=== PATIENT | male | born 1960 | race Hispanic/Latino ===

== ENCOUNTER 2019-04-07 14:53 | Inpatient (IN) | payer MEDICAID ==
[2019-04-07] MEDS ORDERED: ALUM-MAG HYDROX-SIMETH 200-200-20MG/5ML PO ONE (15:19)
[2019-04-07] MEDS ORDERED: LIDOCAINE VISCOUS 2% PO ONE (15:19)
[2019-04-07 15:28] LABS: Basophils % (Auto) 0.7 % (0.0-1.8); Eosinophils # (Auto) 0.1 K/mm3 (0.0-0.4); Eosinophils % (Auto) 2.5 % (0.0-4.3); Hematocrit 32.6 % (35.5-45.6); Hemoglobin 11.4 gm/dl (11.8-15.2); Lymphocytes % (Auto) 18.5 % (13.4-35.0); Mean Corpuscular HGB Conc 35 % (32-34); Mean Corpuscular Volume 100 fl (84-94); Monocytes # (Auto) 0.4 K/mm3 (0.0-0.8); Monocytes % (Auto) 8.4 % (0.0-7.3); Platelet Count 252 K/mm3 (140-440); Red Blood Count 3.26 M/mm3 (3.65-5.03); Red Cell Distribution Width 12.5 % (13.2-15.2)
--- NOTE | 2019-04-07 15:40 | Emergency Department Report ---
ED Chest Pain HPI - General Chief Complaint: Chest Pain Stated Complaint: CHEST PAIN Time Seen by Provider: 04/07/19 15:01 Source: EMS Mode of arrival: Stretcher Limitations: No Limitations - History of Present Illness Initial Comments: 59-year-old male presents to the emergency department with a complaint of generalized weakness, midsternal chest pain/burning and some dizziness with a questionable syncopal episode, that has been going on since yesterday. Patient says that he was helping a neighbor work on a car when he suddenly started f eeling weak and dizzy. He tried to get back into his house and thinks that he may have briefly passed out on the lawn. Since that time, he continues to feel weak and dizzy and has this midsternal burning pain. It is associated with some shortness of breath. He denies any nausea, vomiting or diaphoresis. He is a tobacco smoker and will smoke marijuana tonight. He denies any recent alcohol use. He has a past medical history that includes hypertension, seizures, anxiety, and the patient says that he had a heart attack at ages 13 and 14. His primary care physician is Dr. Fermin Caruso. He does not have a knowledge management advisor. No recent travel or sick contacts at home. Severity scale (0 -10): 6 - Related Data Previous Rx's Medication Instructions Recorded Last Taken Type HYDROcodone/APAP 5-325 [[place] 1 each PO Q6H PRN #15 tablet 09/21/15 Unknown Rx 5/325] Ibuprofen [Motrin] 800 mg PO Q8HR PRN #30 tablet 09/21/15 Unknown Rx Allergies Allergy/AdvReac Type Severity Reaction Status Date / Time ibuprofen [From Motrin] Allergy Hives Verified 04/07/19 15:08 Heart Score - HEART Score History: Slightly suspicious EKG: Non-specific Age: 45-65 Risk factors: > 3 risk factors or hx of atherosclerotic disease Troponin: < normal limit HEART Score: 4 - Critical Actions Critical Actions: 4-6 pts:12-16.6% risk of adverse cardiac event. Should be admitted ED Review of Systems ROS: Stated complaint: CHEST PAIN Other details as noted in HPI Comment: All other systems reviewed and negative Constitutional: weakness. denies: chills, fever Eyes: denies: eye pain, vision change ENT: denies: ear pain, throat pain Respiratory: shortness of breath. denies: cough Cardiovascular: chest pain, syncope. denies: palpitations Gastrointestinal: denies: abdominal pain, vomiting Genitourinary: denies: dysuria, discharge Musculoskeletal: denies: back pain, arthralgia Skin: denies: rash, lesions Neurological: weakness. denies: headache ED Past Medical Hx - Past Medical History Hx Hypertension: Yes - Social History Smoking Status: Current Every Day Smoker Substance Use Type: Alcohol, Marijuana - Medications Home Medications: Home Medications Medication Instructions Recorded Confirmed Last Taken Type HYDROcodone/APAP 5-325 [[place] 1 each PO Q6H PRN #15 tablet 09/21/15 Unknown Rx 5/325] Ibuprofen [Motrin] 800 mg PO Q8HR PRN #30 tablet 09/21/15 Unknown Rx ED Physical Exam - General Limitations: No Limitations - Other Other exam information: GENERAL: The patient is well-developed well-nourished. HENT: Normocephalic. Atraumatic. Patient has moist mucous membranes. EYES: Extraocular motions are intact. Pupils equal reactive to light bilaterally. NECK: Supple. Trachea is midline. CHEST/LUNGS: Clear to auscultation. There is no respiratory distress noted. HEART/CARDIOVASCULAR: Regular. There is no tachycardia. There is no murmur. ABDOMEN: Abdomen is soft, nontender. Patient has normal bowel sounds. There is no abdominal distention. SKIN: Skin is warm and dry. NEURO: The patient is awake, alert, and oriented. The patient is cooperative. The patient has no focal neurologic deficits. The patient has normal speech. MUSCULOSKELETAL: There is no tenderness or deformity. There is no evidence of acute injury. ED Course Vital Signs 04/07/19 04/07/19 04/07/19 14:55 15:08 15:11 Temperature 97.9 F Pulse Rate 82 Respiratory 19 18 Rate Blood Pressure 117/76 [Right] O2 Sat by Pulse 97 97 Oximetry 04/07/19 17:52 Temperature Pulse Rate 88 Respiratory 14 Rate Blood Pressure 119/78 [Right] O2 Sat by Pulse 99 Oximetry DAVID score - David Score Age > 65: (0) No Aspirin use within the Past 7 Days: (0) No 3 or more CAD Risk Factors: (1) Yes 2 or more Angina events in past 24 hrs: (1) Yes Known CAD with more than 50% Stenosis: (0) No Elevated Cardiac Markers: (0) No ST Deviation Greater than 0.5mm: (0) No DAVID Score: 2 ED Medical Decision Making - Lab Data Result diagrams: 04/07/19 15:15 04/07/19 15:15 - EKG Data -: EKG Interpreted by Me EKG shows normal: sinus rhythm, axis (left axis deviation), intervals, QRS complexes (q waves to anterior leads, LVH), ST-T waves Rate: normal - EKG Data When compared to previous EKG there are: previous EKG unavailable Interpretation: other (Sinus, LVH, LAD, Q waves to anterior leads) - Radiology Data Radiology results: image reviewed interpreted by me: Chest x-ray does not show any acute process. There are no pleural effusions, obvious pneumonia and there is no pneumothorax. - Medical Decision Making This patient presents to the emergency department with complaint of some generalized weakness, dizziness, midsternal chest pain and a questionable syn copal episode. His EKG shows some Q waves to the anterior leads but otherwise no signs of ST elevation ME. Chest x-ray does not show any acute process. Patient's labs show some hypokalemia and hyponatremia. Troponins negative 2. He has an elevated d-dimer so a VQ scan has been ordered. The patient does not have a knowledge management advisor and it has been quite some time since he had a full cardiac workup including a stress test, therefore the patient will be admitted to the hospital for further evaluation and treatment. Accepted for admission by the hospitalist, Dr Suárez. - Differential Diagnosis ME, PE, GERD, Costochondritis, Pneumonia Critical Care Time: No Critical care attestation.: If time is entered above; I have spent that time in minutes in the direct care of this critically ill patient, excluding procedure time. ED Disposition Clinical Impression: Acute chest pain, Hyponatremia, Hyperkalemia Disposition: OP ADMIT IP TO THIS HOSP Is pt being admited?: Yes Condition: Fair Instructions: Chest Pain (ED) Referrals: HASMUKH BARLOW MD [Referring] - 3-5 Days Time of Disposition: 19:20
[2019-04-07 15:41] LABS: INR 1.01 (0.87-1.13)
[2019-04-07 15:42] LABS: Partial Thromboplastin Time 28.1 Sec. (24.2-36.6)
[2019-04-07 15:49] LABS: BUN/Creatinine Ratio 7; Blood Urea Nitrogen 10 mg/dL (9-20); Calcium 9.7 mg/dL (8.4-10.2); Hemolysis Index 3
--- NOTE | 2019-04-07 16:40 | XRay Report ---
CHEST 1 VIEW INDICATION: Chest Pain. COMPARISON: None. FINDINGS: Support devices: None. Heart: Within normal limits. Lungs/Pleura: No acute air space or interstitial disease. Additional findings: None. IMPRESSION: 1. No acute findings. Signer Name: Ramy Acharya MD Signed: 04/07/2019 4:35 PM Workstation Name: [id number]
[2019-04-07] MEDS ORDERED: KIONEX PO ONE (18:12)
--- NOTE | 2019-04-07 19:00 | History and Physical Report ---
History of Present Illness Chief complaint: My chest started hurting History of present illness: 59 YO Male with HTN, Nicotine Dependence, ETOH Dependence presents to ED for evaluation. Pt states that he experienced a sudden onset of pain in his chest. Pt states that the pain began yesterday while working on a friends car. Pt states that pain was 6/10, midsternal, sharp in nature, associated with shortness of breath, dizziness, and diaphoresis. Pt states that his episode of dizziness after the onset of chest pain was followed by a near syncopal episode. Pt reports that the pain has persisted over the past 1 day. Pt also reports loss of appetite, and 20lbs unintentional weight loss over the past 1 month. Pt denies previous colonoscopy. Pt acknowledges decreased exercise tolerance, dypsnea on exertion. EMS notified and upon arrival the patient was found to be in distress and transported to [facility]. Pt seen and evaluated in ED and found to have Angina as well as symptoms consistent with Diastolic CHF, Acidosis, and Hyponatremia. Pt admitted to telemetry. Cardiology consulted in ED. Pt denies fever, chills, palpitations, trauma, BRBPR, Productive cough, skin rash, BRBPR, changes in stool size/caliber/color, unilateral leg swelling, calf pain, individual/family history of DVT/PE/Bleeding/Blood Clotting Disorders. Pt states that his last drink of ETOH was today prior to coming to the hospital. Pt sister is at bedside during exam and interview. 30 minutes additional time spent discussing care plan with patient and sister. Past History Past Medical History: hypertension Past Surgical History: No surgical history, Other (reviewed) Social history: single, smoking, alcohol abuse Family history: hypertension Medications and Allergies Allergies Allergy/AdvReac Type Severity Reaction Status Date / Time ibuprofen [From Motrin] Allergy Hives Verified 04/07/19 15:08 Home Medications Medication Instructions Recorded Confirmed Last Taken Type HYDROcodone/APAP 5-325 [[place] 1 each PO Q6H PRN #15 tablet 09/21/15 Unknown Rx 5/325] Ibuprofen [Motrin] 800 mg PO Q8HR PRN #30 tablet 09/21/15 Unknown Rx Review of Systems Constitutional: weight loss, weakness, poor appetite, no weight gain, no fever, no chills Ears, nose, mouth and throat: no ear pain, no ear discharge, no tinnitis, no decreased hearing, no nose pain Cardiovascular: chest pain, lightheadedness, shortness of breath, dyspnea on exertion, decreased exercise tolerance, no orthopnea, no palpitations, no paroxysmal nocturnal dyspnea Respiratory: no cough, no cough with sputum, no excessive sputum, no hemoptysis Gastrointestinal: no nausea, no vomiting, no diarrhea, no constipation Genitourinary Male: no hematuria, no flank pain, no discharge, no urinary frequ ency, no urinary hesitancy Rectal: no pain, no incontinence, no bleeding Musculoskeletal: no neck stiffness, no neck pain, no shooting arm pain, no arm numbness/tingling, no low back pain Integumentary: no rash, no pruritis, no redness, no sores, no wounds Neurological: no transient paralysis, no paralysis, no weakness, no parathesias, no numbness, no tingling Psychiatric: no memory loss, no change in sleep habits, no sleep disturbances, no insomnia Endocrine: no cold intolerance, no polyphagia, no excessive thirst, no polydipsia, no nocturia, no excessive sweating Hematologic/Lymphatic: no easy bruising, no easy bleeding, no lymphadenopathy, no lymphedema Allergic/Immunologic: no urticaria, no allergic rhinitis, no anaphylaxis, no angioedema Exam - Constitutional Vitals: Temp Pulse Resp BP Pulse Ox 97.9 F 88 14 119/78 99 04/07/19 14:55 04/07/19 17:52 04/07/19 17:52 04/07/19 17:52 04/07/19 17:52 General appearance: Present: mild distress - EENT Eyes: Present: PERRL ENT: hearing intact, clear oral mucosa - Neck Neck: Present: supple, normal ROM - Respiratory Respiratory effort: normal Respiratory: bilateral: CTA - Cardiovascular Heart Sounds: Present: S1 & S2. Absent: rub, click - Extremities Extremities: pulses symmetrical, No edema Peripheral Pulses: within normal limits - Abdominal General gastrointestinal: Present: soft, non-tender, non-distended, normal bowel sounds Male genitourinary: Present: normal - Integumentary Integumentary: Present: clear, warm, dry - Musculoskeletal Musculoskeletal: gait normal, strength equal bilaterally - Psychiatric Psychiatric: appropriate mood/affect, intact judgment & insight - Neurologic Neurologic: CNII-XII intact, moves all extremities Results - Labs CBC & Chem 7: 04/07/19 15:15 04/07/19 15:15 Labs: Abnormal lab results 04/07/19 04/07/19 04/07/19 Range/Units 15:15 15:15 15:15 RBC 3.26 L (3.65-5.03) M/mm3 Hgb 11.4 L (11.8-15.2) gm/dl Hct 32.6 L (35.5-45.6) % MCV 100 H (84-94) fl MCH 35 H (28-32) pg MCHC 35 H (32-34) % RDW 12.5 L (13.2-15.2) % [place] % (Auto) 8.4 H (0.0-7.3) % Lymph # 1.0 L (1.2-5.4) K/mm3 D-Dimer 436.13 H (0-234) ng/mlDDU Sodium 128 L (137-145) mmol/L Potassium 5.7 H (3.6-5.0) mmol/L Chloride 93.7 L (98-107) mmol/L Carbon Dioxide 21 L (22-30) mmol/L Assessment and Plan - Patient Problems (1) Angina at rest Current Visit: Yes Status: Acute Plan to address problem: Serial cardiac enzymes, ekg, telemetry, stress test, cardiology consulted in ED, morphine, supplemental oxygen, nitro, aspirin (2) Diastolic CHF Current Visit: Yes Status: Acute Qualifiers: Heart failure chronicity: acute Qualified Code(s): I50.31 - Acute diastolic (congestive) heart failure Plan to address problem: Admit to telemetry, echo, cardiology consulted in ED, thyroid panel, strict I/o, daily weight, monitor uop q shift, supplemental oxygen, afterload reduction, blood pressure control (3) Hyponatremia syndrome Current Visit: Yes Status: Acute Plan to address problem: IVF resuscitation therapy as tolerated, repeat bmp (4) EtOH dependence Current Visit: Yes Status: Acute Qualifiers: Complication of substance-induced condition: with unspecified complication Plan to address problem: Banana bag, Thiamine, folic acid, multivitamin, daily, CIWA protocol (5) Nicotine dependence unspecified, with withdrawal Current Visit: Yes Status: Acute Qualifiers: Nicotine product type: cigarettes Qualified Code(s): F17.213 - Nicotine dependence, cigarettes, with withdrawal Plan to address problem: Smoking cessation counseling, +15minutes, supportive care. (6) Hyperkalemia Current Visit: Yes Status: Acute Plan to address problem: No ekg changes, IVF resuscitation, repeat bmp (7) Acidosis Current Visit: Yes Status: Acute Plan to address problem: IVF resuscitation therapy, repeat bmp (8) Malnutrition Current Visit: Yes Status: Acute Qualifiers: Protein-calorie malnutrition severity: moderate Plan to address problem: CT ABdomen pelvis to evaluate for intraabdominal etiology of unintentional weight loss, encourage increased protein intake, ETOH cessation, (9) DVT prophylaxis Current Visit: Yes Status: Acute Plan to address problem: SCD to BLE while in bed
[2019-04-07] MEDS ORDERED: NITROSTAT SL PRN (19:02)
[2019-04-07] MEDS ORDERED: TYLENOL PO PRN (19:02)
[2019-04-07] MEDS ORDERED: ZOFRAN IV PRN (19:02)
[2019-04-07] MEDS ORDERED: PROVENTIL IH PRN (19:02)
[2019-04-07] MEDS ORDERED: SODIUM CHLORIDE FLUSH SYRINGE 10 ML IV PRN ×2 (19:02)
[2019-04-07] MEDS ORDERED: BABY ASPIRIN PO ONE (19:13)
--- NOTE | 2019-04-07 19:23 | Nuclear Medicine Report ---
Nuclear medicine pulmonary VQ scan INDICATION: Acute onset chest pain with dyspnea TECHNIQUE: A total of 21.8 mCi of xenon-133 and 4.4 mCi of technetium 99 DTPA was administered per pr otocol. COMPARISON: Chest radiograph performed 04/07/2019. FINDINGS: There is normal wash-in and washout of xenon radiotracer. No mismatch perfusion defect iden tified IMPRESSION: Low probability for PTE. Signer Name: Tristian Dwyer MD Signed: 04/07/2019 7:19 PM Workstation Name: [id number]
[2019-04-07] MEDS ORDERED: ATIVAN IV PRN (20:04)
[2019-04-07] MEDS ORDERED: KIONEX ONE (20:14)
[2019-04-07] MEDS ORDERED: 1: FOLVITE 1 MG, INFUVITE 10 ML, VITAMIN B-1 100 MG in NACL 0.9% 1000 ML 988.8 ML 2: NA IV SCH (21:00)
--- NOTE | 2019-04-07 21:35 | Cat Scan Report ---
CT ABDOMEN AND PELVIS WITH IV CONTRAST INDICATION: Diffuse abdominal pain COMPARISON: None available. TECHNIQUE: Axial CT images were obtained through the abdomen and pelvis after 100 mL IV contrast. All CT scans a t this location are performed using CT dose reduction for ALARA by means of automated exposure contro l. FINDINGS -- ABDOMEN: Lung Bases: No acute abnormality. Liver: Normal. Gallbladder: Normal. Bile Ducts: Normal. Pancreas: Normal. Spleen: Normal. Adrenals: Normal. Right Kidney and Proximal Ureter: Normal. Left Kidney and Proximal Ureter: Tiny nonobstructive nephrolithiasis. Stomach and Bowel: Normal. Lymph Nodes: No significant adenopathy. Aorta: Severe atherosclerotic disease of the abdominal aorta. There is some ectasia of the infrarenal abdominal aorta.. IVC: Normal. Additional Findings: None. FINDINGS -- PELVIS: Urinary Bladder and Distal Ureters: Normal. Reproductive Organs: No acute abnormality. Appendix: Not well identified. Bowel: No acute abnormality. Free Fluid: None. Lymph Nodes: No significant adenopathy. Additional Findings: None. Skeletal System: No acute abnormality. IMPRESSION: No evidence of bowel obstruction. No evidence of colitis or diverticulitis. Severe atherosclerotic di sease of the abdominal aorta with multilevel ectasia of the infrarenal abdominal aorta, likely chroni c. Signer Name: Tristian Dwyer MD Signed: 04/07/2019 9:31 PM Workstation Name: [id number]
[2019-04-07 22:04] LABS: Albumin 4.6 g/dL (3.9-5); Bilirubin,Direct 0.2 mg/dL (0-0.2)
[2019-04-07] MEDS: SODIUM CHLORIDE FLUSH SYRINGE 10 ML IV SCH (22:27)
[2019-04-08] MEDS ORDERED: LEXISCAN IV ONE ×3 (07:45→12:01)
[2019-04-08] MEDS: FOLVITE PO SCH (09:33)
[2019-04-08] MEDS: VITAMIN B-1 PO SCH (09:33)
[2019-04-08] MEDS: THERAGRAN Tab PO SCH (09:33)
[2019-04-08] MEDS: MORPHINE IV PRN ×2 (09:33→12:32)
[2019-04-08] MEDS ORDERED: CATAPRES-TTS PATCH TD SCH (10:00)
[2019-04-08 10:23] LABS: BUN/Creatinine Ratio 9; Blood Urea Nitrogen 11 mg/dL (9-20); Calcium 9.1 mg/dL (8.4-10.2); Hemolysis Index 5
--- NOTE | 2019-04-08 11:54 | Consultation ---
History of Present Illness Consult date: 04/08/19 Consult reason: chest pain History of present illness: This is a 59-year old male who has a history of seizure disorder, hypertension, hyperlipidemia, tobacco and alcohol use. Patient reports his last cardiac evaluation was 5-6 years ago. At that time he underwent a cardiac catheterization but reports no significant CAD. He was brought to this hospital with complaints of chest pain, intermittent for 2 days, associated with shortness of and dizziness. A chest x-ray is negative for acute process and a ventilation perfusion scan reports a low probability for PE. Initial labs revealed a sodium of 128 and a potassium of 5.7. Creatinine 1.5. Cycled troponins were normal. An ECG is sinus rhythm, no acute ischemic changes. Past History Past Medical History: acute MA, hypertension, hyperlipidemia, seizures Past Surgical History: No surgical history Social history: single, smoking, alcohol abuse Family history: hypertension Medications and Allergies Allergies Allergy/AdvReac Type Severity Reaction Status Date / Time ibuprofen [From Motrin] Allergy Hives Verified 04/07/19 15:08 Home Medications Medication Instructions Recorded Confirmed Last Taken Type HYDROcodone/APAP 5-325 [[place] 1 each PO Q6H PRN #15 tablet 09/21/15 Unknown Rx 5/325] Ibuprofen [Motrin] 800 mg PO Q8HR PRN #30 tablet 09/21/15 Unknown Rx Active Meds: Active Medications Acetaminophen (Tylenol) 650 mg PO Q4H PRN PRN Reason: Pain MILD(1-3)/Fever >100.5/HERNANDEZ Albuterol (Proventil) 2.5 mg IH Q4HRT PRN PRN Reason: Shortness Of Breath Clonidine HCl (Catapres-Tts Patch) 0.2 mg TD Fr APRIL Folic Acid (Folvite) 1 mg PO QDAY [facility] Last Admin: 04/08/19 09:33 Dose: 1 mg Documented by: Hydralazine HCl (Apresoline) 5 mg IV Q30MIN PRN PRN Reason: Hypertension Folic Acid 1 mg/ Multivitamins /Minerals 10 ml/ Thiamine HCl 100 mg/ Sodium Chloride 1,000 mls @ 125 mls/hr IV .BY DURATION [facility] Last Admin: 04/07/19 22:27 Dose: 125 mls/hr Documented by: Sodium Chloride (Nacl 0.9% 1000 Ml) 1,000 mls @ 125 mls/hr IV .BY DURATION [facility] Lorazepam (Ativan) 2 mg IV Q1HR PRN PRN Reason: CIWA-Ar 8-15 Morphine Sulfate (Morphine) 2 mg IV Q4H PRN PRN Reason: Pain, Moderate (4-6) Last Admin: 04/08/19 09:33 Dose: 2 mg Documented by: Multivitamins (Theragran Tab) 1 each PO QDAY [facility] Last Admin: 04/08/19 09:33 Dose: 1 each Documented by: Nitroglycerin (Nitrostat) 0.4 mg SL Q5M PRN PRN Reason: Chest Pain Ondansetron HCl (Zofran) 4 mg IV Q8H PRN PRN Reason: Nausea And Vomiting Sodium Chloride (Sodium Chloride Flush Syringe 10 Ml) 10 ml IV BID [facility] Last Admin: 04/07/19 22:27 Dose: 10 ml Documented by: Sodium Chloride (Sodium Chloride Flush Syringe 10 Ml) 10 ml IV PRN PRN PRN Reason: LINE FLUSH Sodium Chloride (Sodium Chloride Flush Syringe 10 Ml) 10 ml IV PRN PRN PRN Reason: LINE FLUSH Thiamine HCl (Vitamin B-1) 100 mg PO QDAY [facility] Last Admin: 04/08/19 09:33 Dose: 100 mg Documented by: Physical Examination Vital Signs Temp 97.9 F 04/07/19 14:55 General appearance: no acute distress HEENT: Positive: PERRL Neck: Positive: trachea midline Cardiac: Positive: Reg Rate and Rhythm Lungs: Positive: Decreased Breath Sounds Neuro: Positive: Grossly Intact Extremities: Absent: edema Results 04/07/19 15:15 04/08/19 09:31 Cardiac Enzymes 04/07/19 Range/Units 21:14 AST 53 H (5-40) units/L Coagulation 04/07/19 Range/Units 15:15 PT 13.0 (12.2-14.9) Sec. INR 1.01 (0.87-1.13) APTT 28.1 (24.2-36.6) Sec. CBC 04/07/19 Range/Units 15:15 WBC 5.3 (4.5-11.0) K/mm3 RBC 3.26 L (3.65-5.03) M/mm3 Hgb 11.4 L (11.8-15.2) gm/dl Hct 32.6 L (35.5-45.6) % Plt Count 252 (140-440) K/mm3 Lymph # 1.0 L (1.2-5.4) K/mm3 [place] # 0.4 (0.0-0.8) K/mm3 Eos # 0.1 (0.0-0.4) K/mm3 Baso # 0.0 (0.0-0.1) K/mm3 Comprehensive Metabolic Panel 04/07/19 04/07/19 04/08/19 Range/Units 15:15 21:14 09:31 Sodium 128 L 135 L D (137-145) mmol/L Potassium 5.7 H 4.7 (3.6-5.0) mmol/L Chloride 93.7 L 98.4 (98-107) mmol/L Carbon Dioxide 21 L 23 (22-30) mmol/L BUN 10 11 (9-20) mg/dL Creatinine 1.5 1.2 (0.8-1.5) mg/dL Glucose 76 95 (75-100) mg/dL Calcium 9.7 9.1 (8.4-10.2) mg/dL Direct Bilirubin 0.2 (0-0.2) mg/dL Indirect Bilirubin 0.4 mg/dL AST 53 H (5-40) units/L ALT 55 (7-56) units/L Alkaline Phosphatase 57 (35-129) units/L Total Protein 7.1 (6.3-8.2) g/dL Albumin 4.6 (3.9-5) g/dL Assessment and Plan Chest pain low probability for PE via V/Q scan Hyponatremia Hyperkalemia Hypertension Seizure disorder Tobacco/alcohol abuse
[2019-04-08] MEDS: APRESOLINE IV PRN (12:32)
[2019-04-08 14:22] LABS: Amphetamine Screen,Urine PRESUMPTIVE NEGATIVE; Benzodiazepines Screen,Urine PRESUMPTIVE NEGATIVE; Cocaine Screen,Urine PRESUMPTIVE NEGATIVE; Methadone Screen,Urine PRESUMPTIVE NEGATIVE; Opiate Screen,Urine PRESUMPTIVE NEGATIVE
[2019-04-08 14:38] LABS: Cannabinoid Screen,Urine PRESUMPTIVE POSITIVE
[2019-04-08] MEDS ORDERED: NACL 0.9% 1000 ML 1,000 ML IV SCH (15:00)
--- NOTE | 2019-04-08 15:18 | Progress Note ---
Assessment and Plan / Angina at rest ? Likely from aortic stenosis versus coronary artery disease Negative Serial cardiac enzymes, cardiology consulted in ED, Continue morphine, supplemental oxygen, nitro, aspirin 2-D echo showed preserved EF but moderate aortic stenosis Plan for cardiac cath on Thursday /Aortic stenosis, moderate Cardiology following, white for cardiac /Hypertension, uncontrolled Continue to monitor BP and adjust medications to keep systolic around 140 /Hyperlipidemia, continue statin / Hyponatremia Improved to IVF resuscitation therapy, follow bmp / EtOH dependence Placed on Banana bag, Thiamine, folic acid, multivitamin, daily, CIWA protocol / Nicotine abuse Smoking cessation counseling done on admission +15minutes, Nicotine patch as needed / Hyperkalemia No ekg changes, resolved treat IVF resuscitation, / Malnutrition, moderate History of unintentional weight loss Likely due to alcohol abuse, provided dietary recommendation / DVT prophylaxis SCD to BLE while in bed Hospitalist physical: GENERAL: White male lying on bed appeared to be in no discomfort. HEENT: Normocephalic. Atraumatic. No conjunctival congestion or icterus. Patient has moist mucous membranes. NECK: Supple. Trachea midline. CHEST/LUNGS: Clear to auscultated bilaterally, breathing nonlabored. No wheezes crackles or rhonchi. HEART/CARDIOVASCULAR: Regular in rate and rhythm. S1 and S2 positive. ABDOMEN: Abdomen is soft, nontender. Patient has normal bowel sounds. SKIN: There is no rash. Warm and dry. NEURO: No focal motor deficit. Follows command. MUSCULOSKELETAL: No joint effusion or tenderness. EXTRIMITY: No edema, no cyanosis or clubbing. PSYCH: Cooperative. Subjective Date of service: 04/08/19 Interval history: Patient seen and examined. Medical records and medication list reviewed. No acute event overnight noted by the RN. Patient denies any difficulty breathing. Patient is tolerating diet. Complaints of intermittent chest pain with exertion Discussed plan of care at bedside with patient. Objective - Constitutional Vitals: Vital Signs - 12hr 04/08/19 04/08/19 04/08/19 03:43 06:48 07:59 Temperature 97.4 F L 98.1 F Pulse Rate 69 109 H 72 Respiratory 20 18 Rate Blood Pressure 144/93 172/105 O2 Sat by Pulse 97 97 Oximetry 04/08/19 12:12 Temperature 98.6 F Pulse Rate 81 Respiratory 18 Rate Blood Pressure 179/111 O2 Sat by Pulse 99 Oximetry - Labs CBC & Chem 7: 04/07/19 15:15 04/08/19 09:31 Labs: Abnormal lab results 04/07/19 04/07/19 04/07/19 Range/Units 15:15 15:15 15:15 RBC 3.26 L (3.65-5.03) M/mm3 Hgb 11.4 L (11.8-15.2) gm/dl Hct 32.6 L (35.5-45.6) % MCV 100 H (84-94) fl MCH 35 H (28-32) pg MCHC 35 H (32-34) % RDW 12.5 L (13.2-15.2) % [place] % (Auto) 8.4 H (0.0-7.3) % Lymph # 1.0 L (1.2-5.4) K/mm3 D-Dimer 436.13 H (0-234) ng/mlDDU Sodium 128 L (137-145) mmol/L Potassium 5.7 H (3.6-5.0) mmol/L Chloride 93.7 L (98-107) mmol/L Carbon Dioxide 21 L (22-30) mmol/L AST (5-40) units/L 04/07/19 04/08/19 Range/Units 21:14 09:31 RBC (3.65-5.03) M/mm3 Hgb (11.8-15.2) gm/dl Hct (35.5-45.6) % MCV (84-94) fl MCH (28-32) pg MCHC (32-34) % RDW (13.2-15.2) % [place] % (Auto) (0.0-7.3) % Lymph # (1.2-5.4) K/mm3 D-Dimer (0-234) ng/mlDDU Sodium 135 L D (137-145) mmol/L Potassium (3.6-5.0) mmol/L Chloride (98-107) mmol/L Carbon Dioxide (22-30) mmol/L AST 53 H (5-40) units/L
[2019-04-08] MEDS ORDERED: APRESOLINE IV ONE (16:46)
[2019-04-08] MEDS ORDERED: VITAMIN B-1 100 MG, FOLVITE 1 MG, INFUVITE 10 ML in NACL 0.9% 1000 ML 1,000 ML IV ONE (22:00)
[2019-04-08] MEDS: AMBIEN PO PRN (22:13)
[2019-04-08] MEDS: NORVASC PO SCH (22:18)
[2019-04-09] MEDS: MORPHINE IV PRN ×2 (04:21→13:58)
[2019-04-09] MEDS: APRESOLINE IV PRN ×2 (04:21→09:14)
[2019-04-09] MEDS: SODIUM CHLORIDE FLUSH SYRINGE 10 ML IV SCH ×2 (09:14→21:50)
[2019-04-09] MEDS: THERAGRAN Tab PO SCH (09:16)
[2019-04-09] MEDS: FOLVITE PO SCH (09:16)
[2019-04-09] MEDS: NORVASC PO SCH (09:16)
[2019-04-09] MEDS: VITAMIN B-1 PO SCH (09:16)
--- NOTE | 2019-04-09 10:37 | Progress Note ---
Assessment and Plan 1. Aortic Stenosis: echocardiogram revealed normal left ventricular systolic function, but a calcified and stenotic aortic valve. The peak transaortic gradient is 50, and mean gradient of 28 consistent with at least moderate aortic stenosis. 2. Htn 3. Alcohol abuse Recommendations: Chest pain in the setting of at least moderate aortic stenosis. We will proceed with a right and left heart catheterization on Thursday morning. Risks and benefits have been discussed with the patient and he is willing to proceed Add Coreg [facility] protocol per primary service. Subjective Date of service: 04/09/19 Interval history: No acute events Objective Vital Signs Temp Pulse Resp BP Pulse Ox 04/09/19 09:14 68 169/103 04/09/19 08:47 98.0 F 68 16 169/103 99 04/09/19 04:21 20 04/09/19 04:10 98.1 F 80 20 170/111 99 04/08/19 23:10 98.0 F 80 18 126/91 98 04/08/19 22:19 96 04/08/19 20:34 92 H 04/08/19 19:16 98.6 F 92 H 18 130/98 98 04/08/19 19:05 98 04/08/19 16:05 98.0 F 76 18 168/108 98 04/08/19 12:12 98.6 F 81 18 179/111 99 - Physical Examination HEENT: Positive: PERRL Neck: Positive: trachea midline Cardiac: Positive: Reg Rate and Rhythm, Systolic Murmur (II/ MARGARITA RUSB) Lungs: Positive: clear to auscultation Neuro: Positive: Grossly Intact Abdomen: Positive: Soft, Active Bowel Sounds Extremities: Absent: edema
[2019-04-09] MEDS: COREG PO SCH ×2 (13:59→21:48)
--- NOTE | 2019-04-09 14:51 | Progress Note ---
Assessment and Plan / Angina at rest ? Likely from aortic stenosis versus coronary artery disease Negative Serial cardiac enzymes, cardiology consulted in ED, Continue morphine, supplemental oxygen, nitro, aspirin 2-D echo showed preserved EF but moderate aortic stenosis Plan for cardiac cath on Thursday /Aortic stenosis, moderate Cardiology following, white for cardiac /Hypertension, uncontrolled Continue to monitor BP and adjust medications to keep systolic around 140 /Hyperlipidemia, continue statin / Hyponatremia Improved to IVF resuscitation therapy, follow bmp / EtOH dependence Placed on Banana bag, Thiamine, folic acid, multivitamin, daily, CIWA protocol / Nicotine abuse Smoking cessation counseling done on admission +15minutes, Nicotine patch as needed / Hyperkalemia No ekg changes, resolved treat IVF resuscitation, / Malnutrition, moderate History of unintentional weight loss Likely due to alcohol abuse, provided dietary recommendation / DVT prophylaxis SCD to BLE while in bed Hospitalist physical: GENERAL: White male lying on bed appeared to be in no discomfort. HEENT: Normocephalic. Atraumatic. No conjunctival congestion or icterus. Patient has moist mucous membranes. NECK: Supple. Trachea midline. CHEST/LUNGS: Clear to auscultated bilaterally, breathing nonlabored. No wheezes crackles or rhonchi. HEART/CARDIOVASCULAR: Regular in rate and rhythm. S1 and S2 positive. ABDOMEN: Abdomen is soft, nontender. Patient has normal bowel sounds. SKIN: There is no rash. Warm and dry. NEURO: No focal motor deficit. Follows command. MUSCULOSKELETAL: No joint effusion or tenderness. EXTRIMITY: No edema, no cyanosis or clubbing. PSYCH: Cooperative. Subjective Date of service: 04/09/19 Interval history: Patient seen and examined. Medical records and medication list reviewed. No acute event overnight noted by the RN. Patient denies any difficulty breathing. Patient is tolerating diet. Complaints of intermittent chest pain with exertion Discussed plan of care at bedside with patient. Objective - Constitutional Vitals: Vital Signs - 12hr 04/09/19 04/09/19 04/09/19 04:10 04:21 08:47 Temperature 98.1 F 98.0 F Pulse Rate 80 68 Respiratory 20 20 16 Rate Blood Pressure 170/111 169/103 O2 Sat by Pulse 99 99 Oximetry 04/09/19 04/09/19 04/09/19 09:14 12:22 13:58 Temperature 98.0 F Pulse Rate 68 90 Respiratory 18 20 Rate Blood Pressure 169/103 140/78 O2 Sat by Pulse 99 Oximetry - Labs CBC & Chem 7: 04/07/19 15:15 04/08/19 09:31
[2019-04-09] MEDS: AMBIEN PO PRN (21:48)
[2019-04-10] MEDS: MORPHINE IV PRN ×3 (02:07→17:29)
[2019-04-10] MEDS: VITAMIN B-1 PO SCH (09:34)
[2019-04-10] MEDS: COREG PO SCH ×2 (09:34→21:36)
[2019-04-10] MEDS: FOLVITE PO SCH (09:34)
[2019-04-10] MEDS: THERAGRAN Tab PO SCH (09:34)
[2019-04-10] MEDS: NORVASC PO SCH (09:34)
[2019-04-10] MEDS: SODIUM CHLORIDE FLUSH SYRINGE 10 ML IV SCH ×3 (09:37→22:23)
--- NOTE | 2019-04-10 13:35 | Progress Note ---
Assessment and Plan / Angina at rest ? Likely from aortic stenosis versus coronary artery disease Negative Serial cardiac enzymes, cardiology consulted in ED, Continue morphine, supplemental oxygen, nitro, aspirin 2-D echo showed preserved EF but moderate aortic stenosis Plan for cardiac cath on Thursday /Aortic stenosis, moderate Cardiology following, white for cardiac /Hypertension, uncontrolled Continue to monitor BP and adjust medications to keep systolic around 140 /Hyperlipidemia, continue statin / Hyponatremia Improved to IVF resuscitation therapy, follow bmp / EtOH dependence Placed on Banana bag, Thiamine, folic acid, multivitamin, daily, CIWA protocol / Nicotine abuse Smoking cessation counseling done on admission +15minutes, Nicotine patch as needed / Hyperkalemia No ekg changes, resolved treat IVF resuscitation, / Malnutrition, moderate History of unintentional weight loss Likely due to alcohol abuse, provided dietary recommendation / DVT prophylaxis SCD to BLE while in bed Hospitalist physical: GENERAL: White male lying on bed appeared to be in no discomfort. HEENT: Normocephalic. Atraumatic. No conjunctival congestion or icterus. Patient has moist mucous membranes. NECK: Supple. Trachea midline. CHEST/LUNGS: Clear to auscultated bilaterally, breathing nonlabored. No wheezes crackles or rhonchi. HEART/CARDIOVASCULAR: Regular in rate and rhythm. S1 and S2 positive. ABDOMEN: Abdomen is soft, nontender. Patient has normal bowel sounds. SKIN: There is no rash. Warm and dry. NEURO: No focal motor deficit. Follows command. MUSCULOSKELETAL: No joint effusion or tenderness. EXTRIMITY: No edema, no cyanosis or clubbing. PSYCH: Cooperative. Subjective Date of service: 04/10/19 Interval history: Patient seen and examined. Medical records and medication list reviewed. No acute event overnight noted by the RN. Patient denies any difficulty breathing. Patient is tolerating diet. Complaints of intermittent chest pain with exertion Discussed plan of care at bedside with patient. Objective - Constitutional Vitals: Vital Signs - 12hr 04/10/19 04/10/19 04/10/19 03:39 07:43 09:34 Temperature 98.4 F 97.9 F Pulse Rate 69 63 93 H Respiratory 19 18 Rate Blood Pressure 147/97 142/101 144/95 O2 Sat by Pulse 98 99 Oximetry 04/10/19 11:46 Temperature 98.8 F Pulse Rate 73 Respiratory 18 Rate Blood Pressure 153/106 O2 Sat by Pulse 99 Oximetry - Labs CBC & Chem 7: 07/11/19 15:15 04/11/19 04:18
--- NOTE | 2019-04-10 13:55 | Progress Note ---
Assessment and Plan 1. Aortic Stenosis: echocardiogram revealed normal left ventricular systolic function, but a calcified and stenotic aortic valve. The peak transaortic gradient is 50, and mean gradient of 28 consistent with at least moderate aortic stenosis. 2. Htn 3. Alcohol abuse Recommendations: Chest pain in the setting of at least moderate aortic stenosis. We will proceed with a right and left heart catheterization on Thursday morning. Risks and benefits have been discussed with the patient and he is willing to proceed Coreg added yesterday - continue to monitor BP and titrate as needed CIWA protocol per primary service. Subjective Date of service: 04/10/19 Interval history: No cardiac complaints. Cardiac cath further discussed with patient. Objective Vital Signs Temp Pulse Resp BP Pulse Ox 04/10/19 11:46 98.8 F 73 18 153/106 99 04/10/19 09:34 93 H 144/95 04/10/19 07:43 97.9 F 63 18 142/101 99 04/10/19 03:39 98.4 F 69 19 147/97 98 04/09/19 23:26 97.9 F 65 19 132/97 98 04/09/19 20:55 75 04/09/19 19:21 98.4 F 75 20 138/96 99 04/09/19 17:09 98.0 F 79 18 111/80 100 04/09/19 13:58 20 - Physical Examination HEENT: Positive: PERRL Neck: Positive: trachea midline Cardiac: Positive: Reg Rate and Rhythm, Systolic Murmur (II/ MARGARITA RUSB) Lungs: Positive: clear to auscultation Neuro: Positive: Grossly Intact Abdomen: Positive: Soft, Active Bowel Sounds Extremities: Absent: edema
[2019-04-10] MEDS: LOVENOX SUB-Q SCH (21:36)
[2019-04-11] MEDS: MORPHINE IV PRN ×3 (02:54→21:26)
[2019-04-11 06:05] LABS: INR 1.11 (0.87-1.13)
[2019-04-11 06:19] LABS: BUN/Creatinine Ratio 10; Blood Urea Nitrogen 8 mg/dL (9-20); Hemolysis Index 11
[2019-04-11] MEDS ORDERED: HEPARIN 10,000 UNITS/10 ML ONE (08:49)
[2019-04-11] MEDS ORDERED: HEPARIN/NS 5000 UNIT/500ML(CATH LAB) 1,000 ML IR ONE (08:49)
[2019-04-11] MEDS ORDERED: CALAN ONE (08:49)
[2019-04-11] MEDS ORDERED: NITROGLYCERIN SYRINGE 0 ML ONE (08:50)
[2019-04-11] MEDS ORDERED: NACL 0.9% 500 ML 500 ML ONE (09:10)
[2019-04-11] MEDS: VERSED ONE ×2 (09:20→09:24)
[2019-04-11] MEDS: SUBLIMAZE ONE ×2 (09:20→09:24)
[2019-04-11] MEDS: XYLOCAINE 2% INFILTRATI ONE ×2 (09:20→09:28)
--- NOTE | 2019-04-11 10:42 | Event Note ---
Date: 04/11/19 Right and left heart catheterization completed, no complications. Findings: Moderate to severe aortic stenosis, with mean gradient of 42 and aortic valve area of 1.1. Ascending aortic aneurysm, with at least mild to moderate aortic regurgitation. Angiographically normal coronary arteries. Normal left ventricular systolic function, ejection fraction 60%. Recommendations: A noncontrast CT of the chest, for measurement of the ascending aorta. The patient is stable for cardiac discharge after chest CT, we will refer for CT surgery evaluation as outpatient.
[2019-04-11] MEDS: SODIUM CHLORIDE FLUSH SYRINGE 10 ML IV SCH ×2 (11:00→21:27)
[2019-04-11] MEDS: NORVASC PO SCH (11:00)
[2019-04-11] MEDS: FOLVITE PO SCH (11:00)
[2019-04-11] MEDS: COREG PO SCH ×2 (11:00→21:25)
[2019-04-11] MEDS: THERAGRAN Tab PO SCH (11:00)
[2019-04-11] MEDS ORDERED: NACL 0.9% 1000 ML 1,000 ML IV SCH (11:00)
[2019-04-11] MEDS: VITAMIN B-1 PO SCH (11:00)
--- NOTE | 2019-04-11 11:34 | Cardiac Catherization Report ---
REASON FOR PROCEDURE: The patient is a 59-year-old man who presented with chest pain and further evaluation with an echocardiogram revealed a calcified stenotic aortic valve. He was recommended for right and left heart catheterization for further assessment of valvular stenosis. PROCEDURE: 1. Right heart catheterization. 2. Left heart catheterization. 3. Selective left and right coronary angiography. 4. Left ventricle angiography. 5. Ascending aortic angiography. 6. Sedation time, start 0924 hours, end 0958 hours. The patient was prepped and draped in a sterile fashion after informed consent. The right femoral artery and vein were both entered using Seldinger technique. A 6-Kinyarwanda sheath was inserted into the artery and an 8-Kinyarwanda sheath into the vein. A [place]-Doug catheter was then advanced to the pulmonary artery position. A dual lumen pigtail catheter was advanced into the left ventricle. Transaortic pressures were then recorded using the dual lumen catheter. Following this, simultaneous right and left heart filling pressures were recorded. This cardiac output was measured using the thermodilution method. The [place]-Doug catheter was then withdrawn and right heart pressures were recorded on pullback. Left ventricular angiography was then performed using a pigtail catheter. Pigtail catheter was also used for ascending aortic angiography. Finally, selective left and right coronary angiography was performed. A #5 left Elpidio catheter was used for left coronary angiography, and a #4 right Elpidio was used for right coronary angiography. The catheters were then withdrawn, sheath removed, hemostasis over the arterial site using an Angio-Seal device, and over the venous site using manual compression. The patient was returned to the postprocedure unit in stable condition. There were no complications. FINDINGS: HEMODYNAMICS: The mean right atrial pressure was 8. Right ventricular pressure was 32/10. Pulmonary artery pressure was 35/15. The mean pulmonary artery wedge pressure was 12-15. Left ventricular end-diastolic pressure was 15. Cardiac output was 5.88 liters per minute. AORTIC STENOSIS: The left ventricular systolic pressure was 180. Ascending aortic pressure was 160. Simultaneous transaortic mean gradient was 37 mmHg. Using the Gorlin equation, the aortic valve area was calculated at 1.1 square cm. ASCENDING AORTIC ANGIOGRAPHY: Ascending aortic angiography revealed an aneurysm of the ascending aorta, as well as 2+ aortic regurgitation. CORONARY ANGIOGRAPHY: The left main, left anterior descending arteries and its diagonal branches were angiographically normal. A large ramus intermedius artery was similarly angiographically normal. The circumflex artery and its obtuse marginal branches were similarly angiographically normal. The right coronary artery was a large dominant vessel that contained mild calcification of its mid segment, associated with mild luminal irregularities, but otherwise free of significant disease. There was normal left ventricular systolic function with ejection fraction 60%. CONCLUSION: 1. Normal right heart, left heart filling pressures, very mild elevation of pulmonary artery pressures. 2. At least moderate to severe aortic stenosis, with mean transaortic gradient of 37 mmHg and aortic valve area of 1.1. 3. Ascending aortic angiography, a CT scan of the aorta pending for optimal measurement of maximal transaortic diameter. 4. Moderate aortic regurgitation. 5. Essentially angiographically normal coronary arteries, no significant coronary stenosis. 6. Well preserved left ventricular systolic function, ejection fraction 60%. RECOMMENDATION: 1. The patient will undergo CT of the chest for optimal sizing of the ascending aortic aneurysm. 2. Following this, he will be recommended for CT surgery evaluation for aortic valve replacement, with possible concomitant ascending aortic aneurysm repair. JOB# [id number] ANA/DALILA
--- NOTE | 2019-04-11 14:29 | Discharge Summary ---
Providers - Providers Date of Admission: 04/07/19 19:02 Attending physician: KAYLI BARTLETT 04/07/19 Consult to Cardiac Rehabilitation [CONS] Routine Reason For Exam: Phase I 04/07/19 19:02 Consult to Cardiology [CONS] Routine Consulting Provider: FLO BRIGGS Reason For Exam: angina/chf 04/11/19 10:34 Consult to Cardiac Rehabilitation [CONS] Routine Reason For Exam: Cardiac Rehab Evaluation Primary care physician: SONIA SELF Hospitalization Condition: Fair Pertinent studies: Abdomen and pelvis CT Chest x-ray 2-D echocardiogram Right and left heart catheterization CT chest VQ scan Hospital course: This is the progress note for 04/11/19 Patient seen and examined s/p cardiac cath today, waiting for CT chest This is a 59-year old male who has a history of seizure disorder, hypertension, hyperlipidemia, tobacco and alcohol use was brought to this hospital with complaints of chest pain, intermittent for 2 days, associated with shortness of and dizziness. A chest x-ray is negative for acute process and a ventilation perfusion scan reports a low probability for PE. Initial labs revealed a sodium of 128 and a potassium of 5.7. Creatinine 1.5. Cycled troponins were normal. An ECG is sinus rhythm, no acute ischemic changes. he was admitted for further evaluation and management. Assessment and plan: / Angina at rest Likely from moderate to severe aortic stenosis Negative Serial cardiac enzymes, cardiology consulted in ED, placed on morphine, supplemental oxygen, nitro, aspirin 2-D echo showed preserved EF but moderate aortic stenosis Cardiac cath showed normal coronaries, need outpt CT surgery f/u /Aortic stenosis, Moderate to severe Right and left heart catheterization completed today, no complications. Findings: Moderate to severe aortic stenosis, with mean gradient of 42 and aortic valve area of 1.1. Ascending aortic aneurysm, with at least mild to moderate aortic regurgitation. Angiographically normal coronary arteries. Normal left ventricular systolic function, ejection fraction 60%. Ordered a noncontrast CT of the chest, for measurement of the ascending aorta. The patient was cleared for cardiac discharge after chest CT, refer for CT surgery evaluation as outpatient. /Hypertension, uncontrolled Continue to monitor BP and adjust medications to keep systolic around 140 /Hyperlipidemia, continue statin / Hyponatremia Improved to IVF resuscitation therapy, follow bmp / EtOH dependence Placed on Banana bag, Thiamine, folic acid, multivitamin, daily, CIWA protocol / Nicotine abuse Smoking cessation counseling done on admission +15minutes, Nicotine patch as needed / Hyperkalemia, likely from ACEI No ekg changes, resolved with IVF resuscitation, hold ACEI / Malnutrition, moderate History of unintentional weight loss Likely due to alcohol abuse, provided dietary recommendation /Kadeem, likley from medication, POA. resolved - hold ACEI for now, / DVT prophylaxis SCD to BLE while in bed Hospitalist physical: GENERAL: White male lying on bed appeared to be in no discomfort. HEENT: Normocephalic. Atraumatic. No conjunctival congestion or icterus. Patient has moist mucous membranes. NECK: Supple. Trachea midline. CHEST/LUNGS: Clear to auscultated bilaterally, breathing nonlabored. No wheezes crackles or rhonchi. HEART/CARDIOVASCULAR: Regular in rate and rhythm. S1 and S2 positive. ABDOMEN: Abdomen is soft, nontender. Patient has normal bowel sounds. SKIN: There is no rash. Warm and dry. NEURO: No focal motor deficit. Follows command. MUSCULOSKELETAL: No joint effusion or tenderness. EXTRIMITY: No edema, no cyanosis or clubbing. PSYCH: Cooperative. [id number] Time spent for discharge: 34 minutes Core Measure Documentation - Palliative Care Palliative Care/ Comfort Measures: Not Applicable - Core Measures Any of the following diagnoses?: none Exam - Constitutional Vitals: Temp Pulse Resp BP Pulse Ox 97.4 F L 74 15 180/100 100 04/11/19 12:03 04/11/19 14:00 04/11/19 14:00 04/11/19 14:00 04/11/19 14:00 Plan Additional Instructions: f/u with Dr Briggs in one week Follow up with: JUANA [facility] MD ADINA [Referring] - 3-5 Days Prescriptions: Carvedilol [Coreg] 6.25 mg PO BID #60 tablet Thiamine [Vitamin B-1] 100 mg PO QDAY #30 tablet
[2019-04-11] MEDS: LOVENOX SUB-Q SCH (21:26)
[2019-04-12] MEDS: MORPHINE IV PRN ×3 (06:11→13:57)
--- NOTE | 2019-04-12 09:14 | Cat Scan Report ---
CT CHEST WITH CONTRAST INDICATION / CLINICAL INFORMATION: Ascending aortic aneurysm. TECHNIQUE: Axial CT images were obtained through the chest after 100 cc IV contrast. Sagittal and coronal reform atted images. All CT scans at this location are performed using CT dose reduction for ALARA by means of automated exposure control. COMPARISON: None available. FINDINGS: HEART: Heart size is normal. Aortic valve replacement is noted. There is trace pericardial fluid. THORACIC AORTA: The ascending thoracic aorta measures a maximum of 5.0 cm in diameter. The descending thoracic aorta measures 3.2 cm at the same level. The aortic arch measures 3.2 cm. There are mild sc attered calcific plaques in the aorta. No dissection. MEDIASTINUM and RON: No significant abnormality. LUNGS: Mild to moderate centrilobular emphysematous changes are identified in both upper lobes. No ev idence for nodule, mass or infiltrate. Minimal subpleural atelectatic changes are noted in both lower lobes. PLEURA: No significant pleural effusion. No pneumothorax. ADDITIONAL FINDINGS: None. UPPER ABDOMEN: No significant abnormality. SKELETAL SYSTEM: Healing right posterolateral ninth rib fracture is noted. IMPRESSION: The ascending thoracic aorta measures 5.0 cm in maximum. Mild to moderate emphysematous changes in the upper lobes. Healing right posterolateral ninth rib fracture. Signer Name: Orville Seals Jr, MD Signed: 04/12/2019 9:10 AM Workstation Name: [id number]
--- NOTE | 2019-04-12 09:51 | Progress Note ---
Assessment and Plan Chest pain low probability for PE via V/Q scan Right and left heart catheterization findings: Moderate to severe aortic stenosis, with mean gradient of 42 and aortic valve area of 1.1. Ascending aortic aneurysm, with at least mild to moderate aortic regurgitation. Angiographically normal coronary arteries. Normal left ventricular systolic function, ejection fraction 60%. A noncontrast CT of the chest measures the ascending thoracic aorta at 5.0 cm. Hyponatremia Hypertension Seizure disorder Tobacco/alcohol abuse The patient is stable for cardiac discharge. We will refer for CT surgery evaluation as outpatient. Patient advised to follow up with [facility] as scheduled April 19. Subjective Date of service: 04/12/19 Interval history: Patient has no complaints. He denies chest pain, shortness of breath and has no back pain. No hematoma noted of cath site. Objective Vital Signs Temp Pulse Resp BP BP Pulse Ox 04/12/19 09:27 99 04/12/19 06:11 20 04/12/19 03:38 98.5 F 73 20 135/96 98 04/11/19 23:02 98.5 F 63 20 133/92 98 04/11/19 21:26 20 04/11/19 21:25 78 168/109 04/11/19 20:00 96 04/11/19 19:29 97.6 F 78 19 168/109 99 04/11/19 15:04 69 15 153/98 98 04/11/19 14:00 74 15 180/100 100 04/11/19 12:30 71 16 137/90 95 04/11/19 12:10 98 04/11/19 12:03 97.4 F L 76 17 144/99 99 04/11/19 11:30 98 F 70 14 143/100 97 04/11/19 11:15 97.3 F L 73 16 160/103 98 04/11/19 11:00 98 F 82 15 158/106 158/106 99 04/11/19 10:55 71 160/110 100 04/11/19 10:45 78 14 160/110 99 04/11/19 10:00 67 - Physical Examination General: No Apparent Distress HEENT: Positive: PERRL Neck: Positive: trachea midline Cardiac: Positive: Reg Rate and Rhythm Lungs: Positive: Decreased Breath Sounds Neuro: Positive: Grossly Intact Abdomen: Positive: Soft, Active Bowel Sounds Extremities: Absent: edema
[2019-04-12] MEDS: VITAMIN B-1 PO SCH (10:12)
[2019-04-12] MEDS: COREG PO SCH (10:12)
[2019-04-12] MEDS: THERAGRAN Tab PO SCH (10:12)
[2019-04-12] MEDS: NORVASC PO SCH (10:12)
[2019-04-12] MEDS: FOLVITE PO SCH (10:13)
[2019-04-12] MEDS: SODIUM CHLORIDE FLUSH SYRINGE 10 ML IV SCH (10:13)
[2019-04-12 17:01] VITALS: BP 121/93
--- NOTE | 2019-04-12 17:11 | Discharge Summary ---
Providers - Providers Date of Admission: 04/07/19 19:02 Date of discharge: 04/12/19 Attending physician: HEATHER PUENTES 04/07/19 Consult to Cardiac Rehabilitation [CONS] Routine Reason For Exam: Phase I 04/07/19 19:02 Consult to Cardiology [CONS] Routine Consulting Provider: FLO BRIGGS Reason For Exam: angina/chf 04/11/19 10:34 Consult to Cardiac Rehabilitation [CONS] Routine Reason For Exam: Cardiac Rehab Evaluation Primary care physician: SONIA SELF Hospitalization Reason for admission: chest pain Condition: Fair Pertinent studies: Chest x-ray CT abdomen and pelvis Echocardiogram Cardiac catheterization CT chest Hospital course: This is a 59-year old male who has a history of seizure disorder, hypertension, hyperlipidemia, tobacco and alcohol use was brought to this hospital with complaints of chest pain, intermittent for 2 days, associated with shortness of and dizziness. A chest x-ray is negative for acute process and a ventilation perfusion scan reports a low probability for PE. Initial labs revealed a sodium of 128 and a potassium of 5.7. Creatinine 1.5. Cycled troponins were normal. An ECG is sinus rhythm, no acute ischemic changes. Patient was admitted and evaluated by cardiology , underwent cardiac catheterization. Cardiac catheterization; moderate to severe aortic stenosis with mean gradient 42 and aortic valve area 1.1, ascending aortic aneurysm with at least mild to moderate diabetic regurgitation, nonobstructive coronaries, LVEF 60%. The patient also had noncontrast CT chest; ascending thoracic aorta 5 cm at its widest diameter Stevedoring Superintendent recommend urgent CT surgical evaluation, patient is being transferred to [facility] for aortic valve replacement and repair of the descending aortic aneurysm Discharge Diagnosis: --Angina at rest Likely from moderate to severe aortic stenosis Negative Serial cardiac enzymes,Heart cath, non obst coronaries --Aortic stenosis, Moderate to severe Transfer patient Cardiothoracic surgery [facility] today --Hypertension,mod controlled Continue to monitor BP and adjust medications to keep systolic around 140 --Hyperlipidemia, continue statin --Hyponatremia : improved ,follow bmp --EtOH dependence Placed on Banana bag, Thiamine, folic acid, multivitamin, daily, CIWA protocol --Nicotine abuse Smoking cessation counseling done on admission +15minutes, Nicotine patch as needed --Hyperkalemia, likely from ACEI No ekg changes, resolved with IVF resuscitation, hold ACEI --Malnutrition, moderate History of unintentional weight loss Likely due to alcohol abuse, provided dietary recommendation --Kadeem, likley from medication, POA. resolved hold ACEI for now, Transferred to Cardiothoracic surgeon [facility]. Disposition: DC/TX-02 SHRT-TRM GEN HOSP IP Time spent for discharge: 32 min Core Measure Documentation - Palliative Care Palliative Care/ Comfort Measures: Not Applicable - Core Measures Any of the following diagnoses?: none Exam - Constitutional Vitals: Temp Pulse Resp BP Pulse Ox 98.2 F 71 18 121/93 100 04/12/19 12:05 04/12/19 17:00 04/12/19 12:05 04/12/19 17:00 04/12/19 17:00 General appearance: Present: no acute distress, well-nourished, other (anxious) - EENT Eyes: Present: PERRL, EOM intact - Neck Neck: Present: supple, normal ROM - Respiratory Respiratory effort: normal Respiratory: bilateral: diminished, negative: rales, rhonchi, wheezing - Cardiovascular Rhythm: regular Heart Sounds: Present: S1 & S2 - Extremities Extremities: no ischemia, No edema - Abdominal General gastrointestinal: Present: soft, non-tender, non-distended, normal bowel sounds - Integumentary Integumentary: Present: clear, warm - Musculoskeletal Musculoskeletal: strength equal bilaterally - Psychiatric Psychiatric: appropriate mood/affect, cooperative - Neurologic Neurologic: moves all extremities Plan Activity: other (bedrest) Additional Instructions: Patient is being transferred to [facility] for urgent cardiothoracic surgical evaluation and possible aortic valve replacement and ascending aortic aneurysm repair Follow up with: HASMUKH BARLOW MD [Referring] - 3-5 Days Prescriptions: Carvedilol [Coreg] 6.25 mg PO BID #60 tablet Thiamine [Vitamin B-1] 100 mg PO QDAY #30 tablet
[2019-04-12] MEDS ORDERED: XANAX PO ONE (18:00)
== END 2019-04-12 17:34 | disposition short-term general hospital (02) | DRG 286 ==
LOC: ED 14:53 → 4A 19:02
PROVIDERS: ADMIT Internal Medicine; ATTEND Internal Medicine
PROC: 4A023N8 Measurement of Cardiac Sampling and Pressure, Bilateral, Percutaneous Approach (ICD-10-PCS; principal; 2019-04-11)
PROC: B2111ZZ Fluoroscopy of Multiple Coronary Arteries using Low Osmolar Contrast (ICD-10-PCS; 2019-04-11)
PROC: B2151ZZ Fluoroscopy of Left Heart using Low Osmolar Contrast (ICD-10-PCS; 2019-04-11)
PROC: B3101ZZ Fluoroscopy of Thoracic Aorta using Low Osmolar Contrast (ICD-10-PCS; 2019-04-11)
DX: I35.0 Nonrheumatic aortic (valve) stenosis (principal); I50.31 Acute diastolic (congestive) heart failure; I11.0 Hypertensive heart disease with heart failure; E87.2 Acidosis; E87.1 Hypo-osmolality and hyponatremia; E44.0 Moderate protein-calorie malnutrition; I20.8 Other forms of angina pectoris; E87.5 Hyperkalemia; G40.909 Epilepsy, unspecified, not intractable, without status epilepticus; E78.5 Hyperlipidemia, unspecified; F10.20 Alcohol dependence, uncomplicated; N17.9 Acute kidney failure, unspecified; I71.2 Thoracic aortic aneurysm, without rupture; F17.213 Nicotine dependence, cigarettes, with withdrawal; Z71.6 Tobacco abuse counseling; Z68.21 Body mass index [BMI] 21.0-21.9, adult; Z82.49 Family history of ischemic heart disease and other diseases of the circulatory system
CPT/HCPCS: 36415; 71045; 71260; 74177; 78582; 80048; 80076; 80307; 83880; 84484; 85025; 85379; 85610; 85730; 93005; 93010; 93306; 93460; 93567; G0378; A9540; A9558; C1751; C1760; C1769; C1894; J0360; J1644; J1650; J2060; J2250; J2270; J2785; J3010; J3411; J7030; J7040; Q9967

== ENCOUNTER 2019-06-12 16:58 | Inpatient (IN) | payer MEDICAID ==
--- NOTE | 2019-06-12 17:04 | Emergency Department Report ---
- General Stated complaint: JEANNE Time Seen by Provider: 06/12/19 17:00 Source: patient, EMS Mode of arrival: Stretcher Limitations: No Limitations - History of Present Illness Initial comments: Patient is a 59-year-old male that presents emergency room with complaints of dizziness and weakness and shortness of breath and cough.. Patient states his symptoms been going on for 3 days. Patient states his symptoms are better with rest and wants EMS gave him oxygen. Patient states his symptoms are worse with exertion. Patient states his weakness is generalized weakness. Patient states his cough is productive with yellow sputum. Patient denies fever and chills. Patient denies chest pain. Patient denies nausea vomiting. EMS report received. EMS states the patient was 85% O2 saturation on seen. Patient was given oxygen and his oxygen improved. MD Complaint: generalized weakness -: Sudden Location: generalized Severity: severe Consistency: constant Improves with: rest, other Worsens with: exertion Associated Symptoms: shortness of breath. denies: chest pain, confusion, dark stools, diaphoresis, dysuria, easy bruising, fever/chills, headaches, loss of appetite, nausea/vomiting, myalgias, rash, syncope - Related Data Home Medications Medication Instructions Recorded Confirmed Last Taken Cyclobenzaprine 10 QHS 04/10/19 04/05/19 Nifedipine ER 90 DAILY 04/10/19 04/05/19 Pravastatin 40 QHS 04/10/19 04/05/19 levETIRAcetam 1,000 BID 04/10/19 04/05/19 traZODone 100 QHS 04/10/19 04/05/19 Previous Rx's Medication Instructions Recorded Last Taken Type Carvedilol [Coreg] 6.25 mg PO BID #60 tablet 04/11/19 Unknown Rx Thiamine [Vitamin B-1] 100 mg PO QDAY #30 tablet 04/11/19 Unknown Rx ALBUTEROL NEB's [Proventil 0.083% 2.5 mg IH Q4HRT PRN nebu 04/12/19 Unknown Rx NEBS] Folic Acid [Folvite] 1 mg PO QDAY tablet 04/12/19 Unknown Rx LORazepam [Ativan INJ] 2 mg IV Q1HR PRN vial 04/12/19 Unknown Rx Nitroglycerin [Nitrostat] 0.4 mg SL Q5M PRN tablet 04/12/19 Unknown Rx amLODIPine [Norvasc] 10 mg PO QDAY tablet 04/12/19 Unknown Rx cloNIDine-TTS PATCH [Catapres-Tts 0.2 mg TD Fr patch 04/12/19 Unknown Rx 0.2mg Patch] hydrALAZINE [Apresoline INJ] 5 mg IV Q30MIN PRN vial 04/12/19 Unknown Rx Allergies Allergy/AdvReac Type Severity Reaction Status Date / Time ibuprofen [From Motrin] Allergy Hives Verified 04/07/19 15:08 ED Review of Systems ROS: Stated complaint: JEANNE Other details as noted in HPI Constitutional: denies: chills, fever Eyes: denies: eye pain, eye discharge, vision change ENT: denies: ear pain, throat pain Respiratory: cough, shortness of breath, SOB with exertion, SOB at rest. denies: wheezing Cardiovascular: denies: chest pain, palpitations Endocrine: no symptoms reported Gastrointestinal: denies: abdominal pain, nausea, diarrhea Genitourinary: denies: urgency, dysuria Musculoskeletal: denies: back pain, joint swelling, arthralgia Skin: denies: rash, lesions Neurological: weakness. denies: headache, paresthesias Psychiatric: denies: anxiety, depression Hematological/Lymphatic: denies: easy bleeding, easy bruising ED Past Medical Hx - Past Medical History Previous Medical History?: Yes Hx Hypertension: Yes Hx Seizures: Yes Additional medical history: High Cholesterol - Surgical History Past Surgical History?: Yes Hx Open Heart Surgery: Yes (aortic aneurysm repair) - Family History Family history: no significant - Social History Smoking Status: Former Smoker Substance Use Type: None - Medications Home Medications: Home Medications Medication Instructions Recorded Confirmed Last Taken Type Cyclobenzaprine 10 QHS 04/10/19 04/05/19 History Nifedipine ER 90 DAILY 04/10/19 04/05/19 History Pravastatin 40 QHS 04/10/19 04/05/19 History levETIRAcetam 1,000 BID 04/10/19 04/05/19 History traZODone 100 QHS 04/10/19 04/05/19 History Carvedilol [Coreg] 6.25 mg PO BID #60 tablet 04/11/19 Unknown Rx Thiamine [Vitamin B-1] 100 mg PO QDAY #30 tablet 04/11/19 Unknown Rx ALBUTEROL NEB's [Proventil 0.083% 2.5 mg IH Q4HRT PRN nebu 04/12/19 Unknown Rx NEBS] Folic Acid [Folvite] 1 mg PO QDAY tablet 04/12/19 Unknown Rx LORazepam [Ativan INJ] 2 mg IV Q1HR PRN vial 04/12/19 Unknown Rx Nitroglycerin [Nitrostat] 0.4 mg SL Q5M PRN tablet 04/12/19 Unknown Rx amLODIPine [Norvasc] 10 mg PO QDAY tablet 04/12/19 Unknown Rx cloNIDine-TTS PATCH [Catapres-Tts 0.2 mg TD Fr patch 04/12/19 Unknown Rx 0.2mg Patch] hydrALAZINE [Apresoline INJ] 5 mg IV Q30MIN PRN vial 04/12/19 Unknown Rx ED Physical Exam - General Limitations: No Limitations General appearance: alert, in no apparent distress - Head Head exam: Present: atraumatic, normocephalic - Eye Eye exam: Present: normal appearance, PERRL Pupils: Present: normal accommodation - ENT ENT exam: Present: mucous membranes moist - Neck Neck exam: Present: normal inspection - Respiratory Respiratory exam: Present: normal lung sounds bilaterally, decreased breath jonathan nds. Absent: respiratory distress, wheezes, rales, chest wall tenderness, accessory muscle use, prolonged expiratory - Cardiovascular Cardiovascular Exam: Present: regular rate, normal rhythm. Absent: systolic murmur, diastolic murmur, rubs, gallop - GI/Abdominal GI/Abdominal exam: Present: soft, normal bowel sounds - Rectal Rectal exam: Present: deferred - Extremities Exam Extremities exam: Present: normal inspection - Back Exam Back exam: Present: normal inspection - Neurological Exam Neurological exam: Present: alert, oriented X3 - Psychiatric Psychiatric exam: Present: normal affect, normal mood - Skin Skin exam: Present: warm, dry, intact, normal color. Absent: rash - Assessment Assessment Interval: Baseline - Level of Consciousness 1a. Level of Consciousness: alert/keenly responsive - LOC Questions 1b. LOC Questions: answers both correctly - LOC Command 1c. LOC Commands: performs tasks correctly - Best Gaze 2. Best Gaze: normal - Visual 3. Visual: no visual loss - Facial Palsy 4. Facial Palsy: normal symmetrical movement - Motor Arm 5a. Motor Arm Left: no drift 5b. Motor Arm Right: no drift - Motor Leg 6a. Motor Leg Left: no drift 6b. Motor Leg Right: no drift - Limb Ataxia 7. Limb Ataxia: absent - Sensory 8. Sensory: normal - Best Language 9. Best Language: no aphasia - Dysarthria 10. Dysarthria: normal - Extinction and Inattention 11. Extinction/Inattention: no abnormality - Scoring Total Score: 0 Stroke Severity: No Stroke Symptoms ED Course Vital Signs 06/12/19 06/12/19 06/12/19 17:05 17:26 17:29 Temperature 98.9 F Pulse Rate 75 70 Pulse Rate [ Anterior] Respiratory 15 Rate Respiratory Rate [Anterior] Blood Pressure 143/87 Blood Pressure [Right] O2 Sat by Pulse 93 97 Oximetry 06/12/19 06/12/19 06/12/19 19:12 19:24 20:02 Temperature Pulse Rate 69 66 Pulse Rate [ 69 Anterior] Respiratory 15 18 Rate Respiratory 19 Rate [Anterior] Blood Pressure 147/86 Blood Pressure 147/86 [Right] O2 Sat by Pulse 96 93 Oximetry 06/12/19 06/12/19 20:30 21:15 Temperature Pulse Rate 67 66 Pulse Rate [ Anterior] Respiratory 18 15 Rate Respiratory Rate [Anterior] Blood Pressure Blood Pressure 139/74 135/72 [Right] O2 Sat by Pulse 94 98 Oximetry - Reevaluation(s) Reevaluation #1: I reassessed the patient's lungs, and patient now has wheezes. Patient will be given breathing treatment, mag and Medrol. We'll try to convert the patient to nasal cannula or Ventimask 06/12/19 18:10 Reevaluation #2: pt still hypoxic. Patient placed back on nonrebreather at 100%. 06/12/19 19:09 Reevaluation #3: Patient still hypoxic. Patient will be placed on BiPAP. Patient's wheezing has resolved. 06/12/19 19:30 Reevaluation #4: I discussed all results with patient. Patient agrees with plan of care and admission. Patient will be admitted to the hospitalist service. Patient's O2 saturation better on BiPAP. 06/12/19 19:52 - Consultations Consultation #1: Hospitalist consult for admission. Hospitalist to admit patient. 06/12/19 19:51 ED Medical Decision Making - Lab Data Result diagrams: 06/12/19 17:10 06/12/19 17:10 - EKG Data -: EKG Interpreted by Or EKG shows normal: sinus rhythm, axis, intervals, QRS complexes, ST-T waves Rate: normal - EKG Data Interpretation: LVH - Radiology Data Radiology results: report reviewed, image reviewed CHEST 1 VIEW INDICATION: Weakness. COMPARISON: 04/07/2019 FINDINGS: Support devices: Tubing projects over the right IJ. Please correlate. Otherwise no support device. Heart: Interval sternotomy change with normal heart size. Lungs/Pleura: No acute air space or interstitial disease. Additional findings: None. IMPRESSION: 1. Questionable right IJ sheath and interval sternotomy. Otherwise unremarkable exam. CT head without contrast Clinical history: Weakness FINDINGS: No previous exams are available for comparison. 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 The findings include the left ganglia capsular region. There is no clear CT evidence of acute intracranial hemorrhage or significant mass effect. There is extensive mucosal thickening and opacification within the ethm oid air cells at. There is also mild mucosal thickening with small air-fluid levels within the maxillary sinuses at. The patient appears to be status post right mastoidectomy. All CT scans at this location are performed using the CT dose reduction for ALARA by means of automated exposure control. 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 There is sinus inflammatory disease involving the ethmoid and maxillary sinuses, also described above. CTA CHEST WITH IV CONTRAST INDICATION: hypoxia. weakness. TECHNIQUE: Axial CT images were obtained through the chest after injection of IV contrast. 3 plane MIP reconstructions were produced. All CT scans at this location are performed using CT dose reduction for ALARA by means of automated exposure control. COMPARISON: CT chest 04/12/2019. FINDINGS: Pulmonary Arteries: No pulmonary emboli. Thoracic Aorta: There has been interval repair of a descending thoracic aortic aneurysm. Diameter of the opacified descending thoracic aorta is 3.3 cm (previously 5 cm). There is low density fluid around the ascending aorta. No contrast is seen outside the lumen. Heart: No pericardial effusion. Cardiomegaly. Lungs: Emphysematous changes are again noted. Nodular density in the inferolateral right lower lobe has a somewhat swirled appearance and may be an area of round atelectasis. Pleura: No pleural effusion. No pneumothorax. Lymph Nodes: No significant adenopathy. Additional Findings: None. Upper Abdomen: No acute findings. Skeletal Structures: No significant osseous abnormality. IMPRESSION: 1. No CT evidence for pulmonary embolism. 2. Interval repair of a descending thoracic aortic aneurysm. There is a small amount of low-density fluid surrounding the descending thoracic aorta. No contrast is seen outside the lumen. This fluid may be postsurgical. No retrosternal fluid collections are seen. There is no pericardial effusion. Clinical correlation is needed. 3. Emphysematous changes. 4. Nodular density in the inferolateral right lower lobe is subpleural and new since the prior. This measures 1.3 cm on axial image 102. This has a somewhat swirled appearance and could be an area of round atelectasis. Follow-up is recommended in 3 months. - Medical Decision Making Patient is a 59-year-old male that presents emergency room with complaints of weakness, dizziness, shortness of breath and cough. Patient found to have a COPD exacerbation. Patient found to have emphysema on CT chest. Patient CTA of the chest shows no acute findings and no PE patient's CTA shows good repair of his thoracic aneurysm. Patient's labs unremarkable except for elevated BNP and an elevated WBC. Patient admitted to the for his complaints of weakness and dizziness. Patient's head CT negative. Patient found to be extremely hypoxic. Patient placed on nonrebreather and eventually placed on a BiPAP. Patient's O2 sat improved with BiPAP. Patient was also found to be wheezing and given duo nebs, mag and Solu-Medrol. Patient admitted to the hospitalist service. - Differential Diagnosis SOB. Cough. Pneumonia. COPD. Hypoxia. Critical Care Time: Yes Critical care attestation.: If time is entered above; I have spent that time in minutes in the direct care of this critically ill patient, excluding procedure time. Critical Care Time: 45 minutes ED Disposition Clinical Impression: Hypoxia, SOB (shortness of breath), Cough, COPD exacerbation, Elevated brain natriuretic peptide (BNP) level, Weakness, Dizziness Disposition: DC-09 OP ADMIT IP TO THIS HOSP Is pt being admited?: Yes Does the pt Need Aspirin: No Condition: Critical Time of Disposition: 19:31
[2019-06-12 17:29] LABS: Basophils # (Auto) 0.1 K/mm3 (0.0-0.1); Basophils % (Auto) 0.7 % (0.0-1.8); Eosinophils # (Auto) 0.1 K/mm3 (0.0-0.4); Eosinophils % (Auto) 0.5 % (0.0-4.3); Hematocrit 38.7 % (35.5-45.6); Hemoglobin 12.6 gm/dl (11.8-15.2); Lymphocytes # (Auto) 0.8 K/mm3 (1.2-5.4); Lymphocytes % (Auto) 6.5 % (13.4-35.0); Mean Corpuscular HGB Conc 33 % (32-34); Mean Corpuscular Volume 94 fl (84-94); Monocytes % (Auto) 8.1 % (0.0-7.3); Platelet Count 279 K/mm3 (140-440); Red Blood Count 4.12 M/mm3 (3.65-5.03); Red Cell Distribution Width 16.1 % (13.2-15.2)
[2019-06-12] MEDS ORDERED: MAXIPIME/NS 2 GM/100 ML 2 GM/100 ML BAG IV ONE (17:32)
--- NOTE | 2019-06-12 17:48 | XRay Report ---
CHEST 1 VIEW INDICATION: Weakness. COMPARISON: 04/07/2019 FINDINGS: Support devices: Tubing projects over the right IJ. Please correlate. Otherwise no support device. Heart: Interval sternotomy change with normal heart size. Lungs/Pleura: No acute air space or interstitial disease. Additional findings: None. IMPRESSION: 1. Questionable right IJ sheath and interval sternotomy. Otherwise unremarkable exam. Signer Name: Ketan Chaidez MD Signed: 06/12/2019 5:44 PM Workstation Name: [id number]
[2019-06-12 17:52] LABS: Alanine Aminotransferase 23 units/L (7-56); Albumin 4.2 g/dL (3.9-5); BUN/Creatinine Ratio 15; Blood Urea Nitrogen 9 mg/dL (9-20); Calcium 9.7 mg/dL (8.4-10.2); Hemolysis Index 17
[2019-06-12] MEDS ORDERED: DUONEB *Not for PRN Use IH ONE (18:28)
[2019-06-12] MEDS ORDERED: MAGNESIUM SULFATE 2GM/50ML 2 GM/50 ML BAG IV ONE (18:28)
[2019-06-12] MEDS ORDERED: SOLU-Medrol IV ONE (18:28)
--- NOTE | 2019-06-12 19:18 | Cat Scan Report ---
CT head without contrast Clinical history: Weakness FINDINGS: No previous exams are available for comparison. 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 The findings include the left ganglia capsular region . There is no clear CT evidence of acute intracranial hemorrhage or significant mass effect. There is extensive mucosal thickening and opacification within the ethmoid air cells at. There is also mild m ucosal thickening with small air-fluid levels within the maxillary sinuses at. The patient appears to be status post right mastoidectomy. All CT scans at this location are performed using the CT dose re duction for ALARA by means of automated exposure control. 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 There is sinus inflammatory disease involving the ethmoid and maxillary sinuses, also described above . Signer Name: Hemanth Francisco MD Signed: 06/12/2019 7:14 PM Workstation Name: [id number]
--- NOTE | 2019-06-12 19:22 | Cat Scan Report ---
CTA CHEST WITH IV CONTRAST INDICATION: hypoxia. weakness. TECHNIQUE: Axial CT images were obtained through the chest after injection of IV contrast. 3 plane MIP reconstru ctions were produced. All CT scans at this location are performed using CT dose reduction for ALARA b y means of automated exposure control. COMPARISON: CT chest 04/12/2019. FINDINGS: Pulmonary Arteries: No pulmonary emboli. Thoracic Aorta: There has been interval repair of a descending thoracic aortic aneurysm. Diameter of the opacified descending thoracic aorta is 3.3 cm (previously 5 cm). There is low density fluid aroun d the ascending aorta. No contrast is seen outside the lumen. Heart: No pericardial effusion. Cardiomegaly. Lungs: Emphysematous changes are again noted. Nodular density in the inferolateral right lower lobe h as a somewhat swirled appearance and may be an area of round atelectasis. Pleura: No pleural effusion. No pneumothorax. Lymph Nodes: No significant adenopathy. Additional Findings: None. Upper Abdomen: No acute findings. Skeletal Structures: No significant osseous abnormality. IMPRESSION: 1. No CT evidence for pulmonary embolism. 2. Interval repair of a descending thoracic aortic aneurysm. There is a small amount of low-density f luid surrounding the descending thoracic aorta. No contrast is seen outside the lumen. This fluid may be postsurgical. No retrosternal fluid collections are seen. There is no pericardial effusion. Clini florin correlation is needed. 3. Emphysematous changes. 4. Nodular density in the inferolateral right lower lobe is subpleural and new since the prior. This measures 1.3 cm on axial image 102. This has a somewhat swirled appearance and could be an area of ro und atelectasis. Follow-up is recommended in 3 months. Signer Name: Eddi Huerta MD Signed: 06/12/2019 7:18 PM Workstation Name: [id number]
[2019-06-12] MEDS ORDERED: TYLENOL PO ONE (20:06)
[2019-06-12 20:36] LABS: Bilirubin,Urine NEG (Negative); Blood,Urine NEG (Negative); Color,Urine Straw (Yellow); Protein,Urine <15 mg/dL mg/dL (Negative); RBC,Urine < 1.0 /HPF (0.0-6.0); Urobilinogen,Urine < 2.0 mg/dL (<2.0); WBC,Urine < 1.0 /HPF (0.0-6.0)
[2019-06-12] MEDS ORDERED: SODIUM CHLORIDE FLUSH SYRINGE 10 ML IV PRN (21:59)
[2019-06-12] MEDS ORDERED: ZOFRAN IV PRN (21:59)
[2019-06-12] MEDS ORDERED: TYLENOL PO PRN (21:59)
--- NOTE | 2019-06-12 22:01 | History and Physical Report ---
History of Present Illness Date of examination: 06/12/19 History of present illness: 59-year-old history of hypertension, seizure, hyperlipidemia, status post aneurysmal repair last month comes emergency room with complaints of wheezing, shortness of breath that started last night. Also complaining of cough productive of clear phlegm. He was a 2 pack-a-day smoker but quit last month. Patient was hypoxic on room air, 85%, he was started on BiPAP in the ER, given nebulizer, steroids Review Of Systems: Constitutional: no weight loss, fever, chills Ears, eyes, nose, mouth and throat: no nasal congestion, no nasal discharge, no sinus pressure, blurry vision, diplopia Neck: No neck pain or rigidity. Cardiovascular: No palpitations, chest pain Respiratory: + shortness of breath, cough Gastrointestinal: No hematochezia, abdominal pain Genitourinary : no dysuria, frequency , hematuria Musculoskeletal: no muscle ache , joint pain Integumentary: no rash, no pruritis Neurological: no parathesias, focal weakness Endocrine: no cold or heat intolerance, no polyuria or polydipsia Hematologic/Lymphatic: no easy bruising, no easy bleeding, no gland swelling Allergic/Immunologic: no urticaria, no angioedema. PAST MEDICAL HISTORY: hypertension, seizure, hyperlipidemia, status post aneurysmal repair PAST SURGICAL HISTORY: status post aneurysmal repair FAMILY HISTORY:hypertension, diabetes SOCIAL HISTORY: Denies tobacco, drugs, alcohol Medications and Allergies Allergies Allergy/AdvReac Type Severity Reaction Status Date / Time ibuprofen [From Motrin] Allergy Hives Verified 04/07/19 15:08 Home Medications Medication Instructions Recorded Confirmed Last Taken Type Cyclobenzaprine 10 QHS 04/10/19 04/05/19 History Nifedipine ER 90 DAILY 04/10/19 04/05/19 History Pravastatin 40 QHS 04/10/19 04/05/19 History levETIRAcetam 1,000 BID 04/10/19 04/05/19 History traZODone 100 QHS 04/10/19 04/05/19 History Carvedilol [Coreg] 6.25 mg PO BID #60 tablet 04/11/19 Unknown Rx Thiamine [Vitamin B-1] 100 mg PO QDAY #30 tablet 04/11/19 Unknown Rx ALBUTEROL NEB's [Proventil 0.083% 2.5 mg IH Q4HRT PRN nebu 04/12/19 Unknown Rx NEBS] Folic Acid [Folvite] 1 mg PO QDAY tablet 04/12/19 Unknown Rx LORazepam [Ativan INJ] 2 mg IV Q1HR PRN vial 04/12/19 Unknown Rx Nitroglycerin [Nitrostat] 0.4 mg SL Q5M PRN tablet 04/12/19 Unknown Rx amLODIPine [Norvasc] 10 mg PO QDAY tablet 04/12/19 Unknown Rx cloNIDine-TTS PATCH [Catapres-Tts 0.2 mg TD Fr patch 04/12/19 Unknown Rx 0.2mg Patch] hydrALAZINE [Apresoline INJ] 5 mg IV Q30MIN PRN vial 04/12/19 Unknown Rx Exam - Physical Exam Narrative exam: General Apperance: The patient sitting in bed no acute distress on BIPAP HEENT: Normocephalic, atraumatic. Pupils equally round and reactive to light, extraocular movement intact, and no sclericterus or JVD or thyromegaly or nodule. Neck supple, no carotid bruit, mucous membranes moist, no exudate or erythema Heart: S1-S2, regular is rhythm Lungs: wheezing bilaterally, breathing comfortable Abdomen: Positive bowel sounds, soft, nontender, nondistended, no organomegaly Extremities: No edema cyanosis clubbing Skin: no rash, nodule, warm and dry Neuro:CN 2 -12 intact, motor/sensory intact, speech is fluent - Constitutional Vitals: Temp Pulse Resp BP Pulse Ox 98.9 F 66 15 135/72 98 06/12/19 17:05 06/12/19 21:15 06/12/19 21:15 06/12/19 21:15 06/12/19 21:15 Results - Labs CBC & Chem 7: 06/12/19 17:10 06/12/19 17:10 Labs: Abnormal lab results 06/12/19 06/12/19 06/12/19 Range/Units 17:10 17:10 17:10 WBC 12.5 H (4.5-11.0) K/mm3 RDW 16.1 H (13.2-15.2) % Lymph % (Auto) 6.5 L (13.4-35.0) % [place] % (Auto) 8.1 H (0.0-7.3) % Lymph # 0.8 L (1.2-5.4) K/mm3 [place] # 1.0 H (0.0-0.8) K/mm3 Seg Neutrophils % 84.2 H (40.0-70.0) % Seg Neutrophils # 10.5 H (1.8-7.7) K/mm3 Creatinine 0.6 L (0.8-1.5) mg/dL Glucose 130 H (75-100) mg/dL Total Creatine Kinase 50 L (55-170) units/L NT-Pro-B Natriuret Pep (0-900) pg/mL 06/12/19 Range/Units 18:11 WBC (4.5-11.0) K/mm3 RDW (13.2-15.2) % Lymph % (Auto) (13.4-35.0) % [place] % (Auto) (0.0-7.3) % Lymph # (1.2-5.4) K/mm3 [place] # (0.0-0.8) K/mm3 Seg Neutrophils % (40.0-70.0) % Seg Neutrophils # (1.8-7.7) K/mm3 Creatinine (0.8-1.5) mg/dL Glucose (75-100) mg/dL Total Creatine Kinase (55-170) units/L NT-Pro-B Natriuret Pep 6680 H (0-900) pg/mL Assessment and Plan Assessment Acute respiratory Failure COPD Exacerbation hypertension Hyperlipidemia seizure Plan Admit to medicine Start high-dose steroids, nebulizer treatments, continue BiPAP Continue appropriate outpatient medications DVT prophylaxis
[2019-06-13] MEDS ORDERED: SOLU-Medrol ONE ×2 (02:24→09:08)
[2019-06-13] MEDS: SOLU-Medrol IV SCH ×4 (02:25→21:07)
[2019-06-13 05:43] LABS: Hematocrit 41.2 % (35.5-45.6); Mean Corpuscular HGB Conc 34 % (32-34); Mean Corpuscular Volume 94 fl (84-94); Platelet Count 254 K/mm3 (140-440); Red Blood Count 4.38 M/mm3 (3.65-5.03); Red Cell Distribution Width 15.9 % (13.2-15.2)
[2019-06-13 06:07] LABS: BUN/Creatinine Ratio 17; Blood Urea Nitrogen 12 mg/dL (9-20); Calcium 10.2 mg/dL (8.4-10.2); Hemolysis Index 9
[2019-06-13] MEDS: DUONEB *Not for PRN Use IH SCH ×4 (08:44→20:21)
[2019-06-13] MEDS ORDERED: LOVENOX SUB-Q SCH (10:00)
[2019-06-13 11:17] LABS: Anisocytosis 1+; Basophils % (Manual) 0 % (0.0-1.8); Eosinophils % (Manual) 0 % (0.0-4.3); Monocytes % (Manual) 0 % (0.0-7.3); Platelet Estimate Consistent w Auto; Total Cells Counted 100
[2019-06-13] MEDS ORDERED: PROVENTIL IH PRN (11:22)
[2019-06-13] MEDS ORDERED: NITROSTAT SL PRN (11:22)
--- NOTE | 2019-06-13 11:23 | Progress Note ---
Assessment and Plan Assessment and plan: 59-year-old history of hypertension, seizure, hyperlipidemia, status post aneurysmal repair last month comes emergency room with complaints of wheezing, shortness of breath that started last night. Also complaining of cough productive of clear phlegm. He was a 2 pack-a-day smoker but quit last month. Patient was hypoxic on room air, 85%, he was started on BiPAP in the ER, given nebulizer, steroids Acute respiratory Failure COPD Exacerbation ETOH USE DISORDER Chronic Pain Disorder Tobacco use disorder hypertension Hyperlipidemia seizure Plan Continue supportive care Pulmonary consult considering patient extensive Tobacco use Extensive counselling on tobacco use for 15 mins provided, patient states he has quit use Nebs Restart Home meds Continue and wean high-dose steroids, nebulizer treatments, continue BiPAP Anticipate discharge in am Discussed all plans with the patient Continue appropriate outpatient medications DVT prophylaxis History Interval history: Patient seen and examined, reports improvement but complains of chronic back p ain. Hospitalist Physical - Physical exam Narrative exam: General Apperance: The patient lying in bed no acute distress on BIPAP HEENT: Normocephalic, atraumatic. Pupils equally round and reactive to light, extraocular movement intact, and no sclericterus or JVD or thyromegaly or nodule. Neck supple, no carotid bruit, mucous membranes moist, no exudate or erythema Heart: S1-S2, regular is rhythm Lungs: wheezing bilaterally, breathing comfortable Abdomen: Positive bowel sounds, soft, nontender, nondistended, no organomegaly Extremities: No edema cyanosis clubbing Skin: no rash, nodule, warm and dry Neuro:CN 2 -12 intact, motor/sensory intact, speech is fluent - Constitutional Vitals: Temp Pulse Resp BP Pulse Ox 97.4 F L 86 16 181/97 97 06/13/19 10:22 06/13/19 10:22 06/13/19 10:22 06/13/19 10:22 06/13/19 10:22 Results - Labs CBC & Chem 7: 06/13/19 05:24 06/13/19 05:24 Labs: Laboratory Last Values WBC 5.4 K/mm3 (4.5-11.0) 06/13/19 05:24 RBC 4.38 M/mm3 (3.65-5.03) 06/13/19 05:24 Hgb 14.0 gm/dl (11.8-15.2) 06/13/19 05:24 Hct 41.2 % (35.5-45.6) 06/13/19 05:24 MCV 94 fl (84-94) 06/13/19 05:24 MCH 32 pg (28-32) 06/13/19 05:24 MCHC 34 % (32-34) 06/13/19 05:24 RDW 15.9 % (13.2-15.2) H 06/13/19 05:24 Plt Count 254 K/mm3 (140-440) 06/13/19 05:24 Lymph % (Auto) 6.5 % (13.4-35.0) L 06/12/19 17:10 Saline % (Auto) 8.1 % (0.0-7.3) H 06/12/19 17:10 Eos % (Auto) 0.5 % (0.0-4.3) 06/12/19 17:10 Baso % (Auto) 0.7 % (0.0-1.8) 06/12/19 17:10 Lymph # 0.8 K/mm3 (1.2-5.4) L 06/12/19 17:10 Saline # 1.0 K/mm3 (0.0-0.8) H 06/12/19 17:10 Eos # 0.1 K/mm3 (0.0-0.4) 06/12/19 17:10 Baso # 0.1 K/mm3 (0.0-0.1) 06/12/19 17:10 Add Manual Diff Complete 06/13/19 05:24 Total Counted 100 06/13/19 05:24 Seg Neutrophils % 84.2 % (40.0-70.0) H 06/12/19 17:10 Seg Neuts % (Manual) 95.0 % (40.0-70.0) H 06/13/19 05:24 0 % 06/13/19 05:24 5.0 % (13.4-35.0) L 06/13/19 05:24 Reactive Lymphs % (Man) 0 % 06/13/19 05:24 0 % (0.0-7.3) 06/13/19 05:24 0 % (0.0-4.3) 06/13/19 05:24 0 % (0.0-1.8) 06/13/19 05:24 0 % 06/13/19 05:24 0 % 06/13/19 05:24 0 % 06/13/19 05:24 0 % 06/13/19 05:24 Nucleated RBC % Not Reportable 06/13/19 05:24 Seg Neutrophils # 10.5 K/mm3 (1.8-7.7) H 06/12/19 17:10 Seg Neutrophils # Man 5.1 K/mm3 (1.8-7.7) 06/13/19 05:24 Band Neutrophils # 0.0 K/mm3 06/13/19 05:24 0.3 K/mm3 (1.2-5.4) L 06/13/19 05:24 Abs React Lymphs (Man) 0.0 K/mm3 06/13/19 05:24 0.0 K/mm3 (0.0-0.8) 06/13/19 05:24 0.0 K/mm3 (0.0-0.4) 06/13/19 05:24 0.0 K/mm3 (0.0-0.1) 06/13/19 05:24 0.0 K/mm3 06/13/19 05:24 0.0 K/mm3 06/13/19 05:24 0.0 K/mm3 06/13/19 05:24 Blast Cells # 0.0 K/mm3 06/13/19 05:24 WBC Morphology Not Reportable 06/13/19 05:24 Hypersegmented Neuts Not Reportable 06/13/19 05:24 Hyposegmented Neuts Not Reportable 06/13/19 05:24 Hypogranular Neuts Not Reportable 06/13/19 05:24 Not Reportable 06/13/19 05:24 Not Reportable 06/13/19 05:24 Not Reportable 06/13/19 05:24 Not Reportable 06/13/19 05:24 Not Reportable 06/13/19 05:24 Not Reportable 06/13/19 05:24 Consistent w auto 06/13/19 05:24 Not Reportable 06/13/19 05:24 Plt Clumps, EDTA Not Reportable 06/13/19 05:24 Not Reportable 06/13/19 05:24 Not Reportable 06/13/19 05:24 Not Reportable 06/13/19 05:24 Plt Morphology Comment Not Reportable 06/13/19 05:24 RBC Morphology Not Reportable 06/13/19 05:24 Dimorphic RBCs Not Reportable 06/13/19 05:24 Not Reportable 06/13/19 05:24 Not Reportable 06/13/19 05:24 Not Reportable 06/13/19 05:24 1+ 06/13/19 05:24 Not Reportable 06/13/19 05:24 Not Reportable 06/13/19 05:24 Not Reportable 06/13/19 05:24 Not Reportable 06/13/19 05:24 Not Reportable 06/13/19 05:24 Not Reportable 06/13/19 05:24 Not Reportable 06/13/19 05:24 Not Reportable 06/13/19 05:24 Not Reportable 06/13/19 05:24 Not Reportable 06/13/19 05:24 Not Reportable 06/13/19 05:24 Not Reportable 06/13/19 05:24 Not Reportable 06/13/19 05:24 Not Reportable 06/13/19 05:24 Not Reportable 06/13/19 05:24 Acanthocytes (Spur) Not Reportable 06/13/19 05:24 Rouleaux Not Reportable 06/13/19 05:24 Not Reportable 06/13/19 05:24 Not Reportable 06/13/19 05:24 Not Reportable 06/13/19 05:24 Not Reportable 06/13/19 05:24 Hem Pathologist Commnt No 06/13/19 05:24 Sodium 142 mmol/L (137-145) 06/13/19 05:24 Potassium 4.2 mmol/L (3.6-5.0) 06/13/19 05:24 Chloride 100.7 mmol/L (98-107) 06/13/19 05:24 Carbon Dioxide 25 mmol/L (22-30) 06/13/19 05:24 21 mmol/L 06/13/19 05:24 BUN 12 mg/dL (9-20) 06/13/19 05:24 0.7 mg/dL (0.8-1.5) L 06/13/19 05:24 Estimated GFR > 60 ml/min 06/13/19 05:24 17 % 06/13/19 05:24 Glucose 158 mg/dL (75-100) H 06/13/19 05:24 Calcium 10.2 mg/dL (8.4-10.2) 06/13/19 05:24 0.70 mg/dL (0.1-1.2) 06/12/19 17:10 AST 21 units/L (5-40) 06/12/19 17:10 ALT 23 units/L (7-56) 06/12/19 17:10 100 units/L (35-129) 06/12/19 17:10 50 units/L (55-170) L 06/12/19 17:10 < 0.010 ng/mL (0.00-0.029) 06/12/19 17:10 NT-Pro-B Natriuret Pep 6680 pg/mL (0-900) H 06/12/19 18:11 7.2 g/dL (6.3-8.2) 06/12/19 17:10 4.2 g/dL (3.9-5) 06/12/19 17:10 1.4 % 06/12/19 17:10 Straw (Yellow) 06/12/19 20:20 Clear (Clear) 06/12/19 20:20 7.0 (5.0-7.0) 06/12/19 20:20 Ur Specific [place] 1.021 (1.003-1.030) 06/12/19 20:20 <15 mg/dl mg/dL (Negative) 06/12/19 20:20 Neg mg/dL (Negative) 06/12/19 20:20 Neg mg/dL (Negative) 06/12/19 20:20 Neg (Negative) 06/12/19 20:20 Neg (Negative) 06/12/19 20:20 Neg (Negative) 06/12/19 20:20 < 2.0 mg/dL (<2.0) 06/12/19 20:20 Ur Leukocyte Esterase Neg (Negative) 06/12/19 20:20 < 1.0 /HPF (0.0-6.0) 06/12/19 20:20 < 1.0 /HPF (0.0-6.0) 06/12/19 20:20 U Epithel Cells (Auto) < 1.0 /HPF (0-13.0) 06/12/19 20:20 Active Medications - Current Medications Current Medications: Generic Name Dose Route Start Last Admin Trade Name Freq PRN Reason Stop Dose Admin Acetaminophen 650 mg 06/12/19 21:59 Tylenol PO Q4H PRN Pain MILD(1-3)/Fever >100.5/HERNANDEZ Albuterol/Ipratropium 1 ampul 06/13/19 02:00 06/13/19 09:45 Duoneb *Not For Prn Use* IH 1 ampul Q6HRT APRIL Administration Enoxaparin Sodium 40 mg 06/13/19 10:00 Lovenox SUB-Q QDAY@1000 APRIL Methylprednisolone Sodium Succinate 125 mg 06/12/19 00:30 06/13/19 09:10 Solu-Medrol IV 125 mg Q6HR APRIL Administration Ondansetron HCl 4 mg 06/12/19 21:59 Zofran IV Q8H PRN Nausea And Vomiting Sodium Chloride 10 ml 06/12/19 22:00 Sodium Chloride Flush Syringe 10 Ml IV BID APRIL Sodium Chloride 10 ml 06/12/19 21:59 Sodium Chloride Flush Syringe 10 Ml IV PRN PRN LINE FLUSH
[2019-06-13] MEDS: LOVENOX SUB-Q SCH (12:04)
[2019-06-13] MEDS: SODIUM CHLORIDE FLUSH SYRINGE 10 ML IV SCH (12:36)
[2019-06-13] MEDS: KEPPRA PO SCH (21:07)
[2019-06-13] MEDS: COREG PO SCH (21:08)
[2019-06-13] MEDS ORDERED: NON-FORMULARY (Levetiracetam 1,000 MG) PO SCH (22:00)
[2019-06-13] MEDS ORDERED: NON-FORMULARY (Pravastatin 40 MG) PO SCH (22:00)
[2019-06-13] MEDS ORDERED: DESYREL PO SCH (22:00)
[2019-06-13] MEDS ORDERED: PRAVACHOL PO SCH (22:00)
[2019-06-13] MEDS ORDERED: NON-FORMULARY (Trazodone 100 MG) PO SCH (22:00)
[2019-06-14] MEDS: DUONEB *Not for PRN Use IH SCH ×4 (03:46→17:12)
[2019-06-14] MEDS: SOLU-Medrol IV SCH (04:00)
[2019-06-14] MEDS ORDERED: VITAMIN B-1 PO SCH (10:00)
[2019-06-14] MEDS ORDERED: PROCARDIA XL PO SCH (10:00)
[2019-06-14] MEDS ORDERED: FOLVITE PO SCH (10:00)
[2019-06-14] MEDS ORDERED: NON-FORMULARY (Nifedipine Er 90 MG) PO SCH (10:00)
[2019-06-14] MEDS ORDERED: NORVASC PO SCH (10:00)
[2019-06-14] MEDS: LOVENOX SUB-Q SCH (10:48)
[2019-06-14] MEDS: KEPPRA PO SCH (10:49)
[2019-06-14] MEDS: COREG PO SCH (10:49)
[2019-06-14 10:50] VITALS: BP 149/92
[2019-06-14] MEDS: SODIUM CHLORIDE FLUSH SYRINGE 10 ML IV SCH ×2 (10:50→10:57)
[2019-06-14] MEDS ORDERED: PULMICORT IH SCH (12:00)
[2019-06-14] MEDS ORDERED: SOLU-Medrol IV SCH (12:00)
--- NOTE | 2019-06-14 12:49 | Discharge Summary ---
Providers - Providers Date of Admission: 06/12/19 21:59 Attending physician: COSME GOFF MD 06/13/19 11:32 Consult to Physician [CONS] Routine Comment: Consulting Provider: AL MAYNARD Physician Instructions: Reason For Exam: copd exacerbation Primary care physician: TAMRA MART Hospitalization Reason for admission: copd exacerbation Condition: Stable Hospital course: 59-year-old history of hypertension, seizure, hyperlipidemia, status post aneurysmal repair last month comes emergency room with complaints of wheezing, shortness of breath that started last night. Also complaining of cough productive of clear phlegm. He was a 2 pack-a-day smoker but quit last month. Patient was hypoxic on room air, 85%, he was started on BiPAP in the ER, given nebulizer, steroids * Patient was treated for hypoxic respiratory failure including steroids and is doing well this am * Extensive counselling on tobacco use for 15 mins provided, patient states he has quit use * He will follow with Pulmonary outpatient * Will also wean steroids * Home o2 eval was done and no need for oxygen on discharge Acute respiratory Failure COPD Exacerbation ETOH USE DISORDER Chronic Pain Disorder Tobacco use disorder hypertension Hyperlipidemia seizure Disposition: DC-01 TO HOME OR SELFCARE Time spent for discharge: 35 MINS Core Measure Documentation - Palliative Care Palliative Care/ Comfort Measures: Not Applicable - Core Measures Any of the following diagnoses?: none Exam - Physical Exam Narrative exam: General Apperance: The patient lying in bed no acute distress HEENT: Normocephalic, atraumatic. Pupils equally round and reactive to light, extraocular movement intact, and no sclericterus or JVD or thyromegaly or nodule. Neck supple, no carotid bruit, mucous membranes moist, no exudate or erythema Heart: S1-S2, regular is rhythm Lungs: wheezing bilaterally, breathing comfortable Abdomen: Positive bowel sounds, soft, nontender, nondistended, no organomegaly Extremities: No edema cyanosis clubbing Skin: no rash, nodule, warm and dry Neuro:CN 2 -12 intact, motor/sensory intact, speech is fluent - Constitutional Vitals: Temp Pulse Resp BP Pulse Ox 98.3 F 93 H 20 149/92 98 06/14/19 05:51 06/14/19 08:58 06/14/19 08:58 06/14/19 10:49 06/14/19 08:57 Plan Activity: advance as tolerated, fall precautions Diet: low fat Special Instructions: record daily BP diary, smoking cessation Follow up with: TAMRA MART MD [Primary Care Provider] - 3-5 Days REE JOVEL MD [Staff Physician] - 7 Days Prescriptions: Pravastatin 40 mg PO QHS #30 Folic Acid [Folvite] 1 mg PO QDAY #30 tablet Hydralazine HCl 50 mg PO TID #90 tablet levETIRAcetam 1,000 mg PO BID #60 Metoprolol [Lopressor TAB] 100 mg PO BID #60 tablet amLODIPine [Norvasc] 10 mg PO QDAY #30 tablet Prednisone [predniSONE 10 mg (6-Day Pack, 21 Tabs)] 10 mg PO .TAPER #1 tab.ds.pk ALBUTEROL NEB's [Proventil 0.083% NEBS] 2.5 mg IH Q4HRT PRN #30 nebu PRN Reason: Shortness Of Breath Budesonide/Formoterol Fumarate [Symbicort 160-4.5 Mcg Inhaler] 10.2 gm IH BID 30 Days hfa.aer.ad Thiamine [Vitamin B-1] 100 mg PO QDAY #30 tablet
--- NOTE | 2019-06-14 13:01 | Consultation ---
History of Present Illness Consult date: 06/14/19 Requesting physician: COSME GOFF Reason for consult: COPD History of present illness: 59 y/o male who states that he has been smoking the last 55 years admitted with hypoxic respiratory failure thought secondary to COPD exacerbation. patient states that he is looking to quit smoking. Was started on steroids and oxygen. has since been weaned to room air. Per patient, was walked today and did not desaturate. There is an order for discharge in the computer. Past History Past Medical History: hypertension, hyperlipidemia Medications and Allergies Allergies Allergy/AdvReac Type Severity Reaction Status Date / Time ibuprofen [From Motrin] Allergy Hives Verified 04/07/19 15:08 Home Medications Medication Instructions Recorded Confirmed Last Taken Type Nifedipine ER 60 mg PO DAILY 04/10/19 06/13/19 1 Day Ago History ~06/12/19 60mg Aspirin [Aspirin BABY CHEW TAB] 81 mg PO QDAY 06/13/19 06/13/19 06/12/19 History 81mg Famotidine [Pepcid] 20 mg PO BID 06/13/19 06/13/19 06/12/19 History 20mg Losartan [Cozaar] 100 mg PO QDAY 06/13/19 06/13/19 06/12/19 History 100mg Magnesium Oxide 400 400 mg PO QDAY 06/13/19 06/13/19 06/12/19 History 400mg Warfarin [Coumadin] 5 mg PO QDAY 06/13/19 06/13/19 06/12/19 History 5mg clonazePAM [Klonopin] 1 mg PO Q8HR PRN 06/13/19 06/13/19 Unknown History ALBUTEROL NEB's [Proventil 0.083% 2.5 mg IH Q4HRT PRN #30 nebu 06/14/19 Unknown Rx NEBS] Budesonide/Formoterol Fumarate 10.2 gm IH BID 30 Days hfa.aer.ad 06/14/19 Unknown Rx [Symbicort 160-4.5 Mcg Inhaler] Folic Acid [Folvite] 1 mg PO QDAY #30 tablet 06/14/19 Unknown Rx Hydralazine HCl 50 mg PO TID #90 tablet 06/14/19 Unknown Rx Metoprolol [Lopressor TAB] 100 mg PO BID #60 tablet 06/14/19 Unknown Rx Pravastatin 40 mg PO QHS #30 06/14/19 Unknown Rx Prednisone [predniSONE 10 mg 10 mg PO .TAPER #1 tab.ds.pk 06/14/19 Unknown Rx (6-Day Pack, 21 Tabs)] Thiamine [Vitamin B-1] 100 mg PO QDAY #30 tablet 06/14/19 Unknown Rx amLODIPine [Norvasc] 10 mg PO QDAY #30 tablet 06/14/19 Unknown Rx levETIRAcetam 1,000 mg PO BID #60 06/14/19 Unknown Rx Active Meds: Active Medications Acetaminophen (Tylenol) 650 mg PO Q4H PRN PRN Reason: Pain MILD(1-3)/Fever >100.5/HERNANDEZ Albuterol (Proventil) 2.5 mg IH Q4HRT PRN PRN Reason: Shortness Of Breath Albuterol/Ipratropium (Duoneb *Not For Prn Use*) 1 ampul IH Q4HRT [facility] Amlodipine Besylate (Norvasc) 10 mg PO QDAY [facility] Last Admin: 06/14/19 10:49 Dose: 10 mg Documented by: Budesonide (Pulmicort) 0.5 mg IH Q12HRT [facility] Carvedilol (Coreg) 6.25 mg PO BID [facility] Last Admin: 06/14/19 10:49 Dose: 6.25 mg Documented by: Enoxaparin Sodium (Lovenox) 40 mg SUB-Q QDAY@1000 [facility] Last Admin: 06/14/19 10:48 Dose: 40 mg Documented by: Folic Acid (Folvite) 1 mg PO QDAY [facility] Last Admin: 06/14/19 10:49 Dose: 1 mg Documented by: Levetiracetam (Keppra) 1,000 mg PO BID [facility] Last Admin: 06/14/19 10:49 Dose: 1,000 mg Documented by: Methylprednisolone Sodium Succinate (Solu-Medrol) 60 mg IV Q6H [facility] Nifedipine (Procardia Xl) 90 mg PO QDAY [facility] Last Admin: 06/14/19 10:49 Dose: 90 mg Documented by: Nitroglycerin (Nitrostat) 0.4 mg SL Q5M PRN PRN Reason: Chest Pain Ondansetron HCl (Zofran) 4 mg IV Q8H PRN PRN Reason: Nausea And Vomiting Pravastatin Sodium (Pravachol) 40 mg PO QHS [facility] Last Admin: 06/13/19 21:07 Dose: 40 mg Documented by: Sodium Chloride (Sodium Chloride Flush Syringe 10 Ml) 10 ml IV BID [facility] Last Admin: 06/14/19 10:57 Dose: 10 ml Documented by: Sodium Chloride (Sodium Chloride Flush Syringe 10 Ml) 10 ml IV PRN PRN PRN Reason: LINE FLUSH Last Admin: 06/13/19 21:16 Dose: 10 ml Documented by: Thiamine HCl (Vitamin B-1) 100 mg PO QDAY [facility] Last Admin: 06/14/19 10:49 Dose: 100 mg Documented by: Trazodone HCl (Desyrel) 100 mg PO QHS [facility] Last Admin: 06/13/19 22:02 Dose: 100 mg Documented by: Review of Systems All systems: negative Physical Examination Vital signs: Vital Signs Temp Pulse Resp BP Pulse Ox 98.9 F 75 15 143/87 93 06/12/19 17:05 06/12/19 17:05 06/12/19 17:05 06/12/19 17:05 06/12/19 17:05 General appearance: no acute distress, alert, other (appears older than stated age) Eyes: non-icteric ENT: other (poor dentition) Neck: supple Effort: normal Ascultation: Bilateral: diminished breath sounds Percussion: Bilateral: not dull Tactile fremitus: Bilateral: normal Cardiovascular: regular rate and rhythm Gastrointestinal: normoactive bowel sounds, soft Integumentary: normal Gait: normal gait normal mental status, non-focal exam Results - Laboratory Findings CBC and BMP: 06/13/19 05:24 06/13/19 05:24 Abnormal lab findings: Abnormal Labs 06/12/19 06/12/19 06/12/19 17:10 17:10 17:10 WBC 12.5 H RDW 16.1 H Lymph % (Auto) 6.5 L [place] % (Auto) 8.1 H Lymph # 0.8 L [place] # 1.0 H Seg Neutrophils % 84.2 H Seg Neuts % (Manual) Lymphocytes % (Manual) Seg Neutrophils # 10.5 H Lymphocytes # (Manual) Creatinine 0.6 L Glucose 130 H Total Creatine Kinase 50 L NT-Pro-B Natriuret Pep 06/12/19 06/13/19 06/13/19 18:11 05:24 05:24 WBC RDW 15.9 H Lymph % (Auto) [place] % (Auto) Lymph # [place] # Seg Neutrophils % Seg Neuts % (Manual) 95.0 H Lymphocytes % (Manual) 5.0 L Seg Neutrophils # Lymphocytes # (Manual) 0.3 L Creatinine 0.7 L Glucose 158 H Total Creatine Kinase NT-Pro-B Natriuret Pep 6680 H - Diagnostic Findings CT scan - chest: image reviewed (emphysema) Assessment and Plan 59 y/o male with COPD, evidence by emphysema seen on CTA admitted with hypoxic respiratory failure from COPD exacerbation. 1. Does not appear to need oxygen at discharge 2. Patient is being discharge on symbicort and a Prednisone dose pack 3. Smoking cessation.
== END 2019-06-14 15:45 | disposition home or self-care (01) | DRG 189 ==
LOC: ED 16:58 → 3A 21:59
PROVIDERS: ADMIT Internal Medicine; ATTEND Internal Medicine
PROC: 5A09357 Assistance with Respiratory Ventilation, Less than 24 Consecutive Hours, Continuous Positive Airway Pressure (ICD-10-PCS; principal; 2019-06-12)
PROC: 5A09357 Assistance with Respiratory Ventilation, Less than 24 Consecutive Hours, Continuous Positive Airway Pressure (ICD-10-PCS; 2019-06-13)
DX: J96.01 Acute respiratory failure with hypoxia (principal); I10 Essential (primary) hypertension; J43.9 Emphysema, unspecified; R56.9 Unspecified convulsions; E78.5 Hyperlipidemia, unspecified; G89.29 Other chronic pain; Z87.891 Personal history of nicotine dependence
CPT/HCPCS: 36415; 70450; 71045; 71275; 80048; 80053; 81001; 82550; 83880; 84484; 85007; 85025; 93005; 93010; 94640; 94644; 94660; 94760; G0378; A9270-GY; J0692; J1650; J2930; J3475; Q9967

== ENCOUNTER 2020-02-19 18:15 | Emergency (ER) | payer MEDICAID ==
[2020-02-19 20:05] LABS: Basophils # (Auto) 0.1 K/mm3 (0.0-0.1); Basophils % (Auto) 1.5 % (0.0-1.8); Eosinophils # (Auto) 0.1 K/mm3 (0.0-0.4); Eosinophils % (Auto) 1.5 % (0.0-4.3); Hemoglobin 13.5 gm/dl (11.8-15.2); Lymphocytes # (Auto) 1.1 K/mm3 (1.2-5.4); Lymphocytes % (Auto) 13.9 % (13.4-35.0); Mean Corpuscular HGB Conc 34 % (32-34); Mean Corpuscular Volume 99 fl (84-94); Monocytes # (Auto) 0.8 K/mm3 (0.0-0.8); Platelet Count 193 K/mm3 (140-440); Red Blood Count 4.04 M/mm3 (3.65-5.03); Red Cell Distribution Width 13.7 % (13.2-15.2)
[2020-02-19 20:13] LABS: INR 1.03 (0.87-1.13)
[2020-02-19 20:14] LABS: Partial Thromboplastin Time 28.4 Sec. (24.2-36.6)
[2020-02-19 20:22] LABS: BUN/Creatinine Ratio 8; Blood Urea Nitrogen 11 mg/dL (9-20); Calcium 9.6 mg/dL (8.4-10.2); Hemolysis Index 7
[2020-02-19 20:26] LABS: Alanine Aminotransferase 25 units/L (7-56); Albumin 4.2 g/dL (3.9-5)
[2020-02-19 20:28] LABS: Bilirubin,Direct < 0.2 mg/dL (0-0.2)
--- NOTE | 2020-02-19 20:40 | XRay Report ---
CHEST 1 VIEW INDICATION / CLINICAL INFORMATION: dizziness. COMPARISON: Chest radiograph 06/12/2019 FINDINGS: SUPPORT DEVICES: None. HEART / MEDIASTINUM: Normal heart size. Previous median sternotomy and aortic and mitral valve replac ement. LUNGS / PLEURA: No acute airspace consolidation or pleural fluid. Subtle area likely representing sca rring at the periphery of the right lower lung zone may correlate with the area where a solid nodule was seen on the previous CT scan. No pneumothorax. IMPRESSION: No acute cardiopulmonary abnormality. Signer Name: Edgardo Cody MD Signed: 02/19/2020 8:36 PM Workstation Name: [id number]
[2020-02-19] MEDS ORDERED: SODIUM CHLORIDE 0.9% 500 ML 500 ML IV ONE (20:44)
--- NOTE | 2020-02-19 21:11 | Emergency Department Report ---
ED Dizziness HPI - General Chief Complaint: Dizziness Stated Complaint: Dizziness Time Seen by Provider: 02/19/20 19:15 Source: patient, EMS Mode of arrival: Stretcher Limitations: No Limitations - History of Present Illness Initial Comments: 59-year-old male with history of hypertension, seizure disorder, COPD, CHF presents to ED with complaint of dizziness x1 week. Patient reports feeling lightheaded, even when laying down. He denies chest pain, shortness of breath, vomiting or diarrhea. States he has been eating and drinking well, up until 2 d ays ago when he lost his appetite. Also reports slight cough x 2 days. He denies headache, sore throat, body aches, loss of smell or taste, and contact with anyone that has tested positive for COVID-19. MD Complaint: dizziness, lightheadedness -: week(s) (1) Timing: intermittent Description: lightheadedness, near-syncope Severity: moderate Improves With: nothing Worsens With: nothing Associated Symptoms: cough, loss of appetite. denies: chest pain, fever/chills, shortness of breath, syncope - Related Data Home Medications Medication Instructions Recorded Confirmed Last Taken Nifedipine ER 60 mg PO DAILY 04/10/19 06/13/19 1 Day Ago ~06/12/19 60 mg Aspirin [Aspirin BABY CHEW TAB] 81 mg PO QDAY 06/13/19 06/13/19 06/12/19 81 mg Famotidine [Pepcid] 20 mg PO BID 06/13/19 06/13/19 06/12/19 20 mg Losartan [Cozaar] 100 mg PO QDAY 06/13/19 06/13/19 06/12/19 100 mg Magnesium Oxide 400 400 mg PO QDAY 06/13/19 06/13/19 06/12/19 400 mg Warfarin [Coumadin] 5 mg PO QDAY 06/13/19 06/13/19 06/12/19 5 mg clonazePAM [Klonopin] 1 mg PO Q8HR PRN 06/13/19 06/13/19 Unknown Previous Rx's Medication Instructions Recorded Last Taken Type ALBUTEROL NEB's [Proventil 0.083% 2.5 mg IH Q4HRT PRN #30 nebu 06/14/19 Unknown Rx NEBS] Budesonide/Formoterol Fumarate 10.2 gm IH BID 30 Days hfa.aer.ad 06/14/19 Unknown Rx [Symbicort 160-4.5 Mcg Inhaler] Folic Acid [Folvite] 1 mg PO QDAY #30 tablet 06/14/19 Unknown Rx Hydralazine HCl 50 mg PO TID #90 tablet 06/14/19 Unknown Rx Metoprolol [Lopressor TAB] 100 mg PO BID #60 tablet 06/14/19 Unknown Rx Pravastatin 40 mg PO QHS #30 06/14/19 Unknown Rx Prednisone [predniSONE 10 mg 10 mg PO .TAPER #1 tab.ds.pk 06/14/19 Unknown Rx (6-Day Pack, 21 Tabs)] Thiamine [Vitamin B-1] 100 mg PO QDAY #30 tablet 06/14/19 Unknown Rx amLODIPine 10 mg PO QDAY #30 tablet 06/14/19 Unknown Rx levETIRAcetam 1,000 mg PO BID #60 06/14/19 Unknown Rx Allergies Allergy/AdvReac Type Severity Reaction Status Date / Time ibuprofen [From Motrin] Allergy Hives Verified 04/07/19 15:08 ED Review of Systems ROS: Stated complaint: DIFFICULTY BREATHING Other details as noted in HPI Comment: All other systems reviewed and negative Constitutional: denies: chills, fever ENT: denies: throat pain Respiratory: cough. denies: shortness of breath Cardiovascular: denies: chest pain, palpitations Gastrointestinal: denies: abdominal pain, nausea, vomiting, diarrhea Neurological: denies: headache ED Past Medical Hx - Past Medical History Hx Hypertension: Yes Hx Congestive Heart Failure: Yes Hx Diabetes: No Hx Seizures: Yes Hx Asthma: No Hx COPD: Yes Hx HIV: No Additional medical history: High Cholesterol - Surgical History Hx Open Heart Surgery: Yes - Social History Smoking Status: Former Smoker Substance Use Type: None - Medications Home Medications: Home Medications Medication Instructions Recorded Confirmed Last Taken Type Nifedipine ER 60 mg PO DAILY 04/10/19 06/13/19 1 Day Ago History ~06/12/19 60 mg Aspirin [Aspirin BABY CHEW TAB] 81 mg PO QDAY 06/13/19 06/13/19 06/12/19 History 81 mg Famotidine [Pepcid] 20 mg PO BID 06/13/19 06/13/19 06/12/19 History 20 mg Losartan [Cozaar] 100 mg PO QDAY 0906/13/19 06/12/19 History 100 mg Magnesium Oxide 400 400 mg PO QDAY 06/13/19 06/13/19 06/12/19 History 400 mg Warfarin [Coumadin] 5 mg PO QDAY 06/13/19 06/13/19 06/12/19 History 5 mg clonazePAM [Klonopin] 1 mg PO Q8HR PRN 06/13/19 06/13/19 Unknown History ALBUTEROL NEB's [Proventil 0.083% 2.5 mg IH Q4HRT PRN #30 nebu 06/14/19 Unknown Rx NEBS] Budesonide/Formoterol Fumarate 10.2 gm IH BID 30 Days hfa.aer.ad 06/14/19 Unknown Rx [Symbicort 160-4.5 Mcg Inhaler] Folic Acid [Folvite] 1 mg PO QDAY #30 tablet 06/14/19 Unknown Rx Hydralazine HCl 50 mg PO TID #90 tablet 06/14/19 Unknown Rx Metoprolol [Lopressor TAB] 100 mg PO BID #60 tablet 06/14/19 Unknown Rx Pravastatin 40 mg PO QHS #30 06/14/19 Unknown Rx Prednisone [predniSONE 10 mg 10 mg PO .TAPER #1 tab.ds.pk 06/14/19 Unknown Rx (6-Day Pack, 21 Tabs)] Thiamine [Vitamin B-1] 100 mg PO QDAY #30 tablet 06/14/19 Unknown Rx amLODIPine 10 mg PO QDAY #30 tablet 06/14/19 Unknown Rx levETIRAcetam 1,000 mg PO BID #60 06/14/19 Unknown Rx ED Physical Exam - General Limitations: No Limitations General appearance: alert, in no apparent distress - Head Head exam: Present: atraumatic, normocephalic - Eye Eye exam: Present: normal appearance, EOMI - ENT ENT exam: Present: mucous membranes moist - Neck Neck exam: Present: normal inspection - Respiratory Respiratory exam: Present: normal lung sounds bilaterally. Absent: respiratory distress - Cardiovascular Cardiovascular Exam: Present: regular rate, normal rhythm - GI/Abdominal GI/Abdominal exam: Present: soft. Absent: distended, tenderness - Extremities Exam Extremities exam: Present: normal inspection - Neurological Exam Neurological exam: Present: alert, oriented X3, CN II-XII intact. Absent: motor sensory deficit - Psychiatric Psychiatric exam: Present: normal affect, normal mood - Skin Skin exam: Present: warm, dry, intact, normal color ED Course Vital Signs 02/19/20 02/19/20 02/19/20 19:06 19:15 19:16 Temperature 97.5 F L Pulse Rate 63 68 Respiratory 16 18 Rate Blood Pressure 144/78 126/73 125/80 O2 Sat by Pulse 98 99 98 Oximetry 02/19/20 02/19/20 02/19/20 19:30 19:45 20:00 Temperature Pulse Rate 65 61 65 Respiratory 14 13 14 Rate Blood Pressure 130/76 130/76 117/72 O2 Sat by Pulse 98 97 98 Oximetry 02/19/20 02/19/20 02/19/20 20:15 20:30 20:45 Temperature Pulse Rate 71 67 71 Respiratory 16 14 12 Rate Blood Pressure 120/79 140/77 130/82 O2 Sat by Pulse 100 97 99 Oximetry 02/19/20 02/19/20 02/19/20 21:09 21:15 21:31 Temperature Pulse Rate 71 70 67 Respiratory 20 12 16 Rate Blood Pressure 140/77 140/77 140/77 O2 Sat by Pulse 98 99 98 Oximetry 02/19/20 02/19/20 02/19/20 21:45 22:01 22:13 Temperature 98.0 F Pulse Rate 70 67 Respiratory 11 L 14 Rate Blood Pressure 142/85 153/75 O2 Sat by Pulse 98 99 Oximetry ED Medical Decision Making - Lab Data Result diagrams: 02/19/20 19:49 02/19/20 19:49 - EKG Data -: EKG Interpreted by [place] EKG shows normal: sinus rhythm, axis, intervals, QRS complexes, ST-T waves Rate: normal - EKG Data Interpretation: no acute changes, LVH - Radiology Data Radiology results: report reviewed, image reviewed - Medical Decision Making Workup unremarakble. Vital stable, normal. CT Head negative. No neuro deficits on exam. Pt given normal saline bolus as he was slightly orthostatic. Pt feeling better. Will d/c home at this time. Outpt f/u advised. Return precautions given. - Differential Diagnosis arrythmia, dehydration, ACS, infection, vertigo Critical care attestation.: If time is entered above; I have spent that time in minutes in the direct care of this critically ill patient, excluding procedure time. ED Disposition Clinical Impression: Dizziness Disposition: DC-01 TO HOME OR SELFCARE Is pt being admited?: No Condition: Stable Instructions: Lightheadedness (ED), Dizziness (ED) Referrals: PRIMARY CARE, [Primary Care Provider] - 3-5 Days Time of Disposition: 21:44
--- NOTE | 2020-02-19 21:33 | Cat Scan Report ---
CT HEAD WITHOUT CONTRAST INDICATION: dizziness. TECHNIQUE: Routine CT head without contrast. All CT scans at this location are performed using CT dos e reduction for ALARA by means of automated exposure control. COMPARISON: Head CT 06/12/2019 FINDINGS: BRAIN / INTRACRANIAL CONTENTS: No acute hemorrhage, mass effect, midline shift, or hydrocephalus. No appreciable acute large territorial or lacunar infarct. No chronic infarct or focal atrophy. Normal b rain volume and ventricular/sulcal size for age. ORBITS: No significant abnormality of visualized orbits. SINUSES / MASTOIDS: No significant abnormality of visualized sinuses and mastoid air cells. ADDITIONAL FINDINGS: None. IMPRESSION: 1. No acute intracranial abnormality. Signer Name: Edgardo Cody MD Signed: 02/19/2020 9:29 PM Workstation Name: [id number]
[2020-02-19 22:14] VITALS: BP 153/75
== END 2020-02-19 22:15 | disposition home or self-care (01) ==
LOC: ED 18:15
DX: R42 Dizziness and giddiness (principal); R05 Cough; R63.0 Anorexia; I11.0 Hypertensive heart disease with heart failure; I50.9 Heart failure, unspecified; J44.9 Chronic obstructive pulmonary disease, unspecified; R56.9 Unspecified convulsions; Z98.890 Other specified postprocedural states; Z87.891 Personal history of nicotine dependence; Z88.8 Allergy status to other drugs, medicaments and biological substances
CPT/HCPCS: 36415; 70450; 71045; 80048; 80076; 84484; 85025; 85610; 85730; 93005; 96360; 99285; J7040

== ENCOUNTER 2020-03-22 17:54 | Observation (INO) | payer MEDICAID ==
[2020-03-22 18:55] LABS: Basophils # (Auto) 0.1 K/mm3 (0.0-0.1); Eosinophils # (Auto) 0.3 K/mm3 (0.0-0.4); Lymphocytes # (Auto) 1.5 K/mm3 (1.2-5.4); Mean Corpuscular HGB Conc 37 % (32-34); Mean Corpuscular Volume 97 fl (84-94); Monocytes # (Auto) 1.1 K/mm3 (0.0-0.8); Monocytes % (Auto) 7.6 % (0.0-7.3); Platelet Count 183 K/mm3 (140-440); Red Blood Count 3.55 M/mm3 (3.65-5.03); Red Cell Distribution Width 12.4 % (13.2-15.2)
[2020-03-22 19:03] LABS: Hematocrit 34.5 % (35.5-45.6); Hemoglobin 12.6 gm/dl (11.8-15.2)
[2020-03-22 19:25] LABS: Alanine Aminotransferase 13 units/L (7-56); Albumin 4.1 g/dL (3.9-5); BUN/Creatinine Ratio 9; Blood Urea Nitrogen 7 mg/dL (9-20); Calcium 8.9 mg/dL (8.4-10.2); Hemolysis Index 7
[2020-03-22] MEDS ORDERED: SODIUM CHLORIDE 0.9% 1000 ML 1,000 ML IV ONE ×2 (20:21)
[2020-03-22 20:38] LABS: Bilirubin,Urine NEG (Negative); Blood,Urine NEG (Negative); Color,Urine Colorless (Yellow); Protein,Urine <15 mg/dL mg/dL (Negative); Urobilinogen,Urine < 2.0 mg/dL (<2.0)
[2020-03-22 20:40] LABS: RBC,Urine < 1.0 /HPF (0.0-6.0)
--- NOTE | 2020-03-22 21:39 | Emergency Department Report ---
ED General Adult HPI - General Chief complaint: Recheck/Abnormal Lab/Rx Stated complaint: ABDNORMAL LABS Time Seen by Provider: 03/22/20 20:12 Source: patient Mode of arrival: Ambulatory Limitations: No Limitations - History of Present Illness Initial comments: Patient is a 60-year-old male with a past medical history of COPD and hypertension who is presenting with hypo-natremia. Patient states he has had mild fatigue and short-term memory loss over the last week. He saw his primary care physician who did labs yesterday and he was called to come to the emergency department because of a sodium of 119. Patient sodium today is 120. He denies any nausea vomiting or diarrhea. He states he has had a decreased appetite lately and will take several bites of food and then loses appetite. He denies any heavy alcohol abuse. Severity scale (0 -10): 5 - Related Data Home Medications Medication Instructions Recorded Confirmed Last Taken Nifedipine ER 60 mg PO DAILY 04/10/19 06/13/19 1 Day Ago ~06/12/19 60 mg Aspirin [Aspirin BABY CHEW TAB] 81 mg PO QDAY 06/13/19 06/13/19 06/12/19 81 mg Famotidine [Pepcid] 20 mg PO BID 06/13/19 06/13/19 06/12/19 20 mg Losartan [Cozaar] 100 mg PO QDAY 06/13/19 06/13/19 06/12/19 100 mg Magnesium Oxide 400 400 mg PO QDAY 06/13/19 06/13/19 06/12/19 400 mg Warfarin [Coumadin] 5 mg PO QDAY 06/13/19 06/13/19 06/12/19 5 mg clonazePAM [Klonopin] 1 mg PO Q8HR PRN 06/13/19 06/13/19 Unknown Previous Rx's Medication Instructions Recorded Last Taken Type ALBUTEROL NEB's [Proventil 0.083% 2.5 mg IH Q4HRT PRN #30 nebu 06/14/19 Unknown Rx NEBS] Budesonide/Formoterol Fumarate 10.2 gm IH BID 30 Days hfa.aer.ad 06/14/19 Unknown Rx [Symbicort 160-4.5 Mcg Inhaler] Folic Acid [Folvite] 1 mg PO QDAY #30 tablet 06/14/19 Unknown Rx Hydralazine HCl 50 mg PO TID #90 tablet 06/14/19 Unknown Rx Metoprolol [Lopressor TAB] 100 mg PO BID #60 tablet 06/14/19 Unknown Rx Pravastatin 40 mg PO QHS #30 06/14/19 Unknown Rx Prednisone [predniSONE 10 mg 10 mg PO .TAPER #1 tab.ds.pk 06/14/19 Unknown Rx (6-Day Pack, 21 Tabs)] Thiamine [Vitamin B-1] 100 mg PO QDAY #30 tablet 06/14/19 Unknown Rx amLODIPine 10 mg PO QDAY #30 tablet 06/14/19 Unknown Rx levETIRAcetam 1,000 mg PO BID #60 06/14/19 Unknown Rx Allergies Allergy/AdvReac Type Severity Reaction Status Date / Time ibuprofen [From Motrin] Allergy Hives Verified 04/07/19 15:08 ED Review of Systems ROS: Stated complaint: ABDNORMAL LABS Other details as noted in HPI Comment: All other systems reviewed and negative ED Past Medical Hx - Past Medical History Previous Medical History?: Yes Hx Hypertension: Yes Hx Congestive Heart Failure: Yes Hx Diabetes: No Hx Seizures: Yes Hx Asthma: No Hx COPD: Yes Hx HIV: No Additional medical history: High Cholesterol - Surgical History Past Surgical History?: Yes Hx Open Heart Surgery: Yes - Social History Smoking Status: Former Smoker Substance Use Type: None - Medications Home Medications: Home Medications Medication Instructions Recorded Confirmed Last Taken Type Nifedipine ER 60 mg PO DAILY 04/10/19 06/13/19 1 Day Ago History ~06/12/19 60 mg Aspirin [Aspirin BABY CHEW TAB] 81 mg PO QDAY 06/13/19 06/13/19 06/12/19 History 81 mg Famotidine [Pepcid] 20 mg PO BID 06/13/19 06/13/19 06/12/19 History 20 mg Losartan [Cozaar] 100 mg PO QDAY 06/13/19 06/13/19 06/12/19 History 100 mg Magnesium Oxide 400 400 mg PO QDAY 06/13/19 06/13/19 06/12/19 History 400 mg Warfarin [Coumadin] 5 mg PO QDAY 06/13/19 06/13/19 06/12/19 History 5 mg clonazePAM [Klonopin] 1 mg PO Q8HR PRN 06/13/19 06/13/19 Unknown History ALBUTEROL NEB's [Proventil 0.083% 2.5 mg IH Q4HRT PRN #30 nebu 06/14/19 Unknown Rx NEBS] Budesonide/Formoterol Fumarate 10.2 gm IH BID 30 Days hfa.aer.ad 06/14/19 Unknown Rx [Symbicort 160-4.5 Mcg Inhaler] Folic Acid [Folvite] 1 mg PO QDAY #30 tablet 06/14/19 Unknown Rx Hydralazine HCl 50 mg PO TID #90 tablet 06/14/19 Unknown Rx Metoprolol [Lopressor TAB] 100 mg PO BID #60 tablet 06/14/19 Unknown Rx Pravastatin 40 mg PO QHS #30 06/14/19 Unknown Rx Prednisone [predniSONE 10 mg 10 mg PO .TAPER #1 tab.ds.pk 06/14/19 Unknown Rx (6-Day Pack, 21 Tabs)] Thiamine [Vitamin B-1] 100 mg PO QDAY #30 tablet 06/14/19 Unknown Rx amLODIPine 10 mg PO QDAY #30 tablet 06/14/19 Unknown Rx levETIRAcetam 1,000 mg PO BID #60 06/14/19 Unknown Rx ED Physical Exam - General Limitations: No Limitations General appearance: alert, in no apparent distress - Head Head exam: Present: atraumatic, normocephalic - Eye Eye exam: Present: normal appearance - ENT ENT exam: Present: mucous membranes moist - Neck Neck exam: Present: normal inspection - Respiratory Respiratory exam: Present: normal lung sounds bilaterally, wheezes (mild and clears with cough). Absent: respiratory distress, rales, rhonchi - Cardiovascular Cardiovascular Exam: Present: regular rate, normal rhythm. Absent: systolic murmur, diastolic murmur, rubs, gallop - GI/Abdominal GI/Abdominal exam: Present: soft, normal bowel sounds - Rectal Rectal exam: Present: deferred - Extremities Exam Extremities exam: Present: normal inspection - Back Exam Back exam: Present: normal inspection - Neurological Exam Neurological exam: Present: alert, oriented X3 - Psychiatric Psychiatric exam: Present: normal affect, normal mood - Skin Skin exam: Present: warm, dry, intact, normal color. Absent: rash ED Course Vital Signs 03/22/20 19:44 Pulse Rate 72 Respiratory 18 Rate Blood Pressure 118/86 [Right] O2 Sat by Pulse 97 Oximetry ED Medical Decision Making - Lab Data Result diagrams: 03/22/20 18:39 03/22/20 18:39 - Radiology Data Chest x-ray is negative for any large lung masses - Medical Decision Making Patient is a 60-year-old male who is presenting with fatigue. Patient is hyponatremic. Hyponatremia cause is unknown at this time. Patient started on IV fluids and he will be admitted to the hospitalist service. In review of the patient's past medical history is has had hyponatremia from alcohol dependence in the past. Patient states he only drinks 3 bottles of water daily but he may be in a state where he is not being truthful about his alcohol use. Patient told me that he does not drink beer and does not have heavy alcohol use. Critical care attestation.: If time is entered above; I have spent that time in minutes in the direct care of this critically ill patient, excluding procedure time. ED Disposition Clinical Impression: Hyponatremia Disposition: -09 OP ADMIT IP TO THIS HOSP Is pt being admited?: Yes Does the pt Need Aspirin: No Condition: Stable Referrals: PRIMARY CARE [Primary Care Provider] - 3-5 Days Time of Disposition: 21:39
--- NOTE | 2020-03-22 21:48 | XRay Report ---
CHEST 2 VIEWS INDICATION / CLINICAL INFORMATION: cough. COMPARISON: 02/19/2020 FINDINGS: SUPPORT DEVICES: None. HEART / MEDIASTINUM: Sternotomy, aortic valve replacement and mitral valve repair. Heart size is norm al. LUNGS / PLEURA: No significant pulmonary or pleural abnormality. No pneumothorax. ADDITIONAL FINDINGS: No significant additional findings. IMPRESSION: 1. No acute findings. Signer Name: Erich Medina MD Signed: 03/22/2020 9:44 PM Workstation Name: [id number]
[2020-03-22] MEDS ORDERED: MAGNESIUM HYDROXIDE (MOM) ORAL LIQD UDC PO PRN (22:34)
[2020-03-22] MEDS ORDERED: ACETAMINOPHEN 325 MG TAB PO PRN (22:34)
[2020-03-22] MEDS ORDERED: ONDANSETRON 4 MG/2 ML INJ IV PRN (22:34)
[2020-03-22] MEDS ORDERED: SODIUM CHLORIDE 0.9% 1000 ML 1,000 ML IV SCH (22:45)
[2020-03-22 23:02] LABS: INR 1.06 (0.87-1.13)
[2020-03-22 23:03] LABS: Partial Thromboplastin Time 31.3 Sec. (24.2-36.6)
--- NOTE | 2020-03-23 00:31 | History and Physical Report ---
History of Present Illness Date of examination: 03/22/20 Date of admission: 03/22/20 21:40 Chief complaint: Generalized fatigue Abnormal labs History of present illness: 60-year-old male with known history of hypertension and COPD was sent to the emergency room today because of fatigue and low sodium level. Patient was seen by his primary care physician and had some blood test done about 2 days ago and was later called today and encouraged to report to the emergency room because of sodium of 119. Patient denies any nausea vomiting, no diarrhea, no fever or c hills, no chest pain or shortness of breath, no headache or dizziness. He has had decreased appetite lately but denies any significant weight loss. Work-up in the emergency room today reveals a serum sodium of 120. Chest x-ray has been unremarkable. Patient was started on IV fluid normal saline. Past History Past Medical History: COPD, heart failure, hyperlipidemia, seizures Past Surgical History: No surgical history Social history: smoking (Former smoker) Family history: no significant family history Medications and Allergies Allergies Allergy/AdvReac Type Severity Reaction Status Date / Time ibuprofen [From Motrin] Allergy Hives Verified 04/07/19 15:08 Home Medications Medication Instructions Recorded Confirmed Last Taken Type Nifedipine ER 60 mg PO DAILY 04/10/19 06/13/19 1 Day Ago History ~06/12/19 60 mg Aspirin [Aspirin BABY CHEW TAB] 81 mg PO QDAY 06/13/19 06/13/19 06/12/19 History 81 mg Famotidine [Pepcid] 20 mg PO BID 06/13/19 06/13/19 06/12/19 History 20 mg Losartan [Cozaar] 100 mg PO QDAY 06/13/19 06/13/19 06/12/19 History 100 mg Magnesium Oxide 400 400 mg PO QDAY 06/13/19 06/13/19 06/12/19 History 400 mg Warfarin [Coumadin] 5 mg PO QDAY 06/13/19 06/13/19 06/12/19 History 5 mg clonazePAM [Klonopin] 1 mg PO Q8HR PRN 06/13/19 06/13/19 Unknown History ALBUTEROL NEB's [Proventil 0.083% 2.5 mg IH Q4HRT PRN #30 nebu 06/14/19 Unknown Rx NEBS] Budesonide/Formoterol Fumarate 10.2 gm IH BID 30 Days hfa.aer.ad 06/14/19 Unknown Rx [Symbicort 160-4.5 Mcg Inhaler] Folic Acid [Folvite] 1 mg PO QDAY #30 tablet 06/14/19 Unknown Rx Hydralazine HCl 50 mg PO TID #90 tablet 06/14/19 Unknown Rx Metoprolol [Lopressor TAB] 100 mg PO BID #60 tablet 06/14/19 Unknown Rx Pravastatin 40 mg PO QHS #30 06/14/19 Unknown Rx Prednisone [predniSONE 10 mg 10 mg PO .TAPER #1 tab.ds.pk 06/14/19 Unknown Rx (6-Day Pack, 21 Tabs)] Thiamine [Vitamin B-1] 100 mg PO QDAY #30 tablet 06/14/19 Unknown Rx amLODIPine 10 mg PO QDAY #30 tablet 06/14/19 Unknown Rx levETIRAcetam 1,000 mg PO BID #60 06/14/19 Unknown Rx Active Meds: Active Medications Acetaminophen (Tylenol) 650 mg PO Q4H PRN PRN Reason: Pain MILD(1-3)/Fever >100.5/HERNANDEZ Heparin Sodium (Porcine) (Heparin) 5,000 unit SUB-Q Q8HR APRIL Sodium Chloride (Nacl 0.9% 1000 Ml) 1,000 mls @ 75 mls/hr IV DIRECT APRIL Magnesium Hydroxide (Milk Of Magnesia) 30 ml PO Q4H PRN PRN Reason: Constipation Ondansetron HCl (Zofran) 4 mg IV Q8H PRN PRN Reason: Nausea And Vomiting Sodium Chloride (Sodium Chloride Flush Syringe 10 Ml) 10 ml IV BID APRIL Sodium Chloride (Sodium Chloride Flush Syringe 10 Ml) 10 ml IV PRN PRN PRN Reason: LINE FLUSH Review of Systems Constitutional: fatigue, no fever, no chills Ears, nose, mouth and throat: no nasal congestion, no sore throat Cardiovascular: no chest pain, no palpitations Respiratory: no cough, no shortness of breath Gastrointestinal: no abdominal pain, no nausea, no vomiting, no diarrhea Genitourinary Male: no dysuria, no hematuria, no flank pain Musculoskeletal: no neck pain, no low back pain Integumentary: no rash, no pruritis Neurological: no headaches, no convulsions Psychiatric: no anxiety, no depression Exam - Constitutional Vitals: Temp Pulse Resp BP Pulse Ox 97.5 F L 88 20 102/63 97 03/23/20 00:20 03/23/20 00:20 03/23/20 00:20 03/23/20 00:20 03/23/20 00:20 General appearance: Present: no acute distress, well-nourished - EENT Eyes: Present: PERRL, EOM intact ENT: hearing intact, clear oral mucosa, dentition normal - Neck Neck: Present: supple, normal ROM - Respiratory Respiratory effort: normal Respiratory: right: wheezing - Cardiovascular Rhythm: regular Heart Sounds: Present: S1 & S2, systolic murmur. Absent: gallop, diastolic murmur, rub - Extremities Extremities: no ischemia, pulses intact, pulses symmetrical, No edema, Full ROM Peripheral Pulses: within normal limits - Abdominal General gastrointestinal: Present: soft, non-tender, non-distended, normal bowel sounds - Integumentary Integumentary: Present: clear, warm, dry. Absent: jaundice, rash - Musculoskeletal Musculoskeletal: strength equal bilaterally - Psychiatric Psychiatric: appropriate mood/affect, intact judgment & insight, memory intact, cooperative - Neurologic Neurologic: CNII-XII intact, no focal deficits, moves all extremities Results - Labs CBC & Chem 7: 03/22/20 18:39 03/22/20 18:39 Labs: Abnormal lab results 03/22/20 03/22/20 03/22/20 Range/Units 18:39 18:39 20:20 WBC 14.0 H (4.5-11.0) K/mm3 RBC 3.55 L (3.65-5.03) M/mm3 Hct 34.5 L (35.5-45.6) % MCV 97 H (84-94) fl MCH 36 H (28-32) pg MCHC 37 H (32-34) % RDW 12.4 L (13.2-15.2) % Lymph % (Auto) 11.0 L (13.4-35.0) % [place] % (Auto) 7.6 H (0.0-7.3) % [place] # 1.1 H (0.0-0.8) K/mm3 Seg Neutrophils % 78.4 H (40.0-70.0) % Seg Neutrophils # 11.0 H (1.8-7.7) K/mm3 Sodium 120 L (137-145) mmol/L Chloride 88.7 L (98-107) mmol/L Carbon Dioxide 19 L (22-30) mmol/L BUN 7 L (9-20) mg/dL Ur Specific [place] 1.002 L (1.003-1.030) Assessment and Plan - Patient Problems (1) Hyponatremia Current Visit: Yes Status: Acute Plan to address problem: Etiology is unclear. Patient is asymptomatic. Patient has been placed on IV fluid normal saline. Will monitor chemistry. We will check urine electrolytes and also request nephrology evaluation and recommendation. (2) DVT prophylaxis Current Visit: No Status: Acute Plan to address problem: Patient placed on subcutaneous heparin. (3) Full code status Current Visit: Yes Status: Acute
[2020-03-23 05:26] LABS: Basophils # (Auto) 0.1 K/mm3 (0.0-0.1); Basophils % (Auto) 0.5 % (0.0-1.8); Eosinophils # (Auto) 0.2 K/mm3 (0.0-0.4); Eosinophils % (Auto) 2.1 % (0.0-4.3); Hematocrit 36.4 % (35.5-45.6); Hemoglobin 12.6 gm/dl (11.8-15.2); Lymphocytes % (Auto) 9.1 % (13.4-35.0); Mean Corpuscular HGB Conc 35 % (32-34); Mean Corpuscular Volume 98 fl (84-94); Monocytes # (Auto) 0.9 K/mm3 (0.0-0.8); Monocytes % (Auto) 8.8 % (0.0-7.3); Platelet Count 171 K/mm3 (140-440); Red Blood Count 3.71 M/mm3 (3.65-5.03); Red Cell Distribution Width 12.7 % (13.2-15.2)
[2020-03-23 05:34] LABS: Osmolality,Urine 207 Mosm/kg
[2020-03-23 05:35] LABS: INR 1.06 (0.87-1.13)
[2020-03-23 05:42] LABS: BUN/Creatinine Ratio 13; Blood Urea Nitrogen 9 mg/dL (9-20); Calcium 8.4 mg/dL (8.4-10.2); Hemolysis Index 3
[2020-03-23] MEDS ORDERED: HEPARIN 5,000 UNIT/1 ML VIAL SUB-Q SCH (06:00)
--- NOTE | 2020-03-23 09:13 | Discharge Summary ---
Providers - Providers Date of Admission: 03/22/20 21:40 Attending physician: COSME GOFF MD 03/22/20 23:27 Consult to Physician [CONS] Routine Comment: Consulting Provider: KAYLEIGH JORDAN Physician Instructions: Reason For Exam: HYPONATREMIA Primary care physician: [facility] Hospitalization Condition: Stable Hospital course: Clinical stable. will benefit from Psych consult for management of psych meds. Patient denies Alcohol use. Disposition: - TO HOME OR SELFCARE Time spent for discharge: 35 mins Core Measure Documentation - Palliative Care Palliative Care/ Comfort Measures: Not Applicable - Core Measures Any of the following diagnoses?: none Exam - Constitutional Vitals: Temp Pulse Resp BP Pulse Ox 98.3 F 90 16 110/75 97 03/23/20 04:56 03/23/20 04:56 03/23/20 04:56 03/23/20 04:56 03/23/20 04:56 Plan Activity: advance as tolerated, fall precautions Diet: low fat Special Instructions: record daily weights Follow up with: BEV PENG MD [Primary Care Provider] - 3-5 Days SONIA SELF MD [Staff Physician] - 7 Days ELLEN HILL MD [Staff Physician] - 7 Days
[2020-03-23 13:26] VITALS: BP 162/87
[2020-03-23 13:40] LABS: BUN/Creatinine Ratio 10; Blood Urea Nitrogen 7 mg/dL (9-20); Calcium 8.7 mg/dL (8.4-10.2); Hemolysis Index 9
--- NOTE | 2020-03-23 14:14 | Consultation ---
History of Present Illness - Reason for Consult Consult date: 03/23/20 hyponatremia - History of Present Illness This is a 60 year-old man with history of hypertension and COPD who presents with hyponatremia. Was noted to have fatigue and had evaluation by his PCP which showed sodium of 119. Sodium 120 on arrival to ED. Patient notes that he has not been eating well for past 2 weeks but has been drinking Huma-Aid, teas for hydration. Overnight, patient was started on normal saline. Currently, patient denies any issues including dyspnea, edema, nausea, vomiting, headaches. Notes that appetite has improved. Past History Past Medical History: COPD, heart failure, hyperlipidemia, seizures Past Surgical History: No surgical history Social history: smoking (Former smoker) Family history: no significant family history Medications and Allergies Allergies Allergy/AdvReac Type Severity Reaction Status Date / Time ibuprofen [From Motrin] Allergy Hives Verified 04/07/19 15:08 onion Allergy Unknown Verified 03/23/20 10:53 Home Medications Medication Instructions Recorded Confirmed Last Taken Type Nifedipine ER 60 mg PO DAILY 04/10/19 06/13/19 03/22/20 History Aspirin [Aspirin BABY CHEW TAB] 81 mg PO QDAY 06/13/19 06/13/19 03/22/20 History Famotidine [Pepcid] 20 mg PO BID 06/13/19 06/13/19 03/22/20 History Losartan [Cozaar] 100 mg PO QDAY 06/13/19 06/13/19 03/22/20 History Magnesium Oxide 400 400 mg PO QDAY 06/13/19 06/13/19 03/22/20 History Warfarin [Coumadin] 5 mg PO QDAY 06/13/19 03/23/20 03/22/20 History clonazePAM [Klonopin] 1 mg PO Q8HR PRN 06/13/19 06/13/19 03/22/20 History ALBUTEROL NEB's [Proventil 0.083% 2.5 mg IH Q4HRT PRN #30 nebu 06/14/19 Rx NEBS] Budesonide/Formoterol Fumarate 10.2 gm IH BID 30 Days hfa.aer.ad 06/14/19 Unknown Rx [Symbicort 160-4.5 Mcg Inhaler] Folic Acid [Folvite] 1 mg PO QDAY #30 tablet 06/14/19 03/22/20 Rx Hydralazine HCl 50 mg PO TID #90 tablet 06/14/19 03/22/20 Rx Metoprolol [Lopressor TAB] 100 mg PO BID #60 tablet 06/14/19 03/22/20 Rx Pravastatin 40 mg PO QHS #30 06/14/19 03/22/20 Rx Prednisone [predniSONE 10 mg 10 mg PO .TAPER #1 tab.ds.pk 06/14/19 03/23/20 Unknown Rx (6-Day Pack, 21 Tabs)] Thiamine [Vitamin B-1] 100 mg PO QDAY #30 tablet 06/14/19 03/23/20 03/22/20 Rx amLODIPine 10 mg PO QDAY #30 tablet 06/14/19 03/22/20 Rx levETIRAcetam 1,000 mg PO BID #60 06/14/19 03/22/20 Rx Active Meds: Active Medications Acetaminophen (Tylenol) 650 mg PO Q4H PRN PRN Reason: Pain MILD(1-3)/Fever >100.5/HERNANDEZ Heparin Sodium (Porcine) (Heparin) 5,000 unit SUB-Q Q8HR [facility] Last Admin: 03/23/20 07:39 Dose: Not Given Documented by: Sodium Chloride (Nacl 0.9% 1000 Ml) 1,000 mls @ 75 mls/hr IV DIRECT [facility] Last Admin: 03/23/20 00:29 Dose: 75 mls/hr Documented by: Magnesium Hydroxide (Milk Of Magnesia) 30 ml PO Q4H PRN PRN Reason: Constipation Ondansetron HCl (Zofran) 4 mg IV Q8H PRN PRN Reason: Nausea And Vomiting Sodium Chloride (Sodium Chloride Flush Syringe 10 Ml) 10 ml IV BID APRIL Sodium Chloride (Sodium Chloride Flush Syringe 10 Ml) 10 ml IV PRN PRN PRN Reason: LINE FLUSH Review of Systems All systems: negative (as per HPI) Exam - Vital Signs Vital signs: Vital Signs Pulse Resp BP Pulse Ox 72 18 118/86 97 03/22/20 19:44 03/22/20 19:44 03/22/20 19:44 03/22/20 19:44 - Physical Exam Narrative exam: Constitutional: no acute distress Head: NC/AT Neck: supple Lungs: clear to auscultation CV: RRR, no M/R/G Abdomen: soft, non-tender, bowel sounds present Back: nontender Extremities: no edema, pulses WNL Skin: intact Neuro: no focal deficits, alert and oriented x4 Results - Lab Results 03/23/20 04:58 03/23/20 Unknown Most recent lab results Calcium 8.7 mg/dL (8.4-10.2) 03/23/20 Unknown Phosphorus 3.10 mg/dL (2.5-4.5) 03/22/20 18:39 Magnesium 1.80 mg/dL (1.7-2.3) 03/22/20 18:39 Urine Sodium 47 mmol/L 03/22/20 22:39 Assessment and Plan This is a 60 year old man who presents with acute hyponatremia. # Hyponatremia: suspect hyponatremia in setting of volume depletion given poor solute intake per history with increased free water intake with huma-aid, teas, etc. Sodium 120->134->132 over less than 24 hours with NS infusion. Ideally, would not correct to >130 within 24 hours. Have stopped IVF for now with sodium at 132; would recheck again this evening. Encouraged balanced solute intake (appetite has now improved per patient). Will arrange close follow up given severity of hyponatremia. Reviewed urine studies which were likely obtained after NS started. - daily labs - renal diet # HTN: encouraged patient to continue to limit salt intake. Continue home meds
== END 2020-03-23 15:45 | disposition home or self-care (01) ==
LOC: ED 17:54 → 3A 21:40
PROVIDERS: ADMIT Internal Medicine Geriatric Medicine; ATTEND Internal Medicine
DX: E87.1 Hypo-osmolality and hyponatremia (principal); I11.0 Hypertensive heart disease with heart failure; I50.9 Heart failure, unspecified; J44.9 Chronic obstructive pulmonary disease, unspecified; E78.5 Hyperlipidemia, unspecified; Z87.891 Personal history of nicotine dependence; Z79.82 Long term (current) use of aspirin; Z79.51 Long term (current) use of inhaled steroids; Z79.899 Other long term (current) drug therapy; Z88.8 Allergy status to other drugs, medicaments and biological substances
CPT/HCPCS: 36415; 71046; 80048; 80053; 81001; 83735; 83935; 84100; 84300; 84439; 84443; 85025; 85610; 85730; 99284; G0378; J7030

== ENCOUNTER 2020-09-21 12:23 | Emergency (ER) | payer MEDICAID ==
[2020-09-21 12:48] VITALS: BP 147/84
--- NOTE | 2020-09-21 12:51 | Event Note ---
ED Screening Note Date of service: 09/21/20 Time: 12:50 ED Screening Note: Complains of shortness of breath today History of CHF and COPD Patient satting 84% on room air-patient placed on O2 via nasal cannula This initial assessment/diagnostic orders/clinical plan/treatment(s) is/are subject to change based on patients health status, clinical progression and re- assessment by fellow clinical providers in the ED. Further treatment and workup at subsequent clinical providers discretion. Patient/guardian urged not to elope from the ED as their condition may be serious if not clinically assessed and managed. Initial orders include: Labs EKG Chest x-ray
[2020-09-21 13:19] LABS: Basophils # (Auto) 0.1 K/mm3 (0.0-0.1); Basophils % (Auto) 0.7 % (0.0-1.8); Eosinophils # (Auto) 0.2 K/mm3 (0.0-0.4); Eosinophils % (Auto) 2.1 % (0.0-4.3); Hematocrit 34.5 % (35.5-45.6); Hemoglobin 11.9 gm/dl (11.8-15.2); Lymphocytes # (Auto) 0.5 K/mm3 (1.2-5.4); Lymphocytes % (Auto) 5.5 % (13.4-35.0); Mean Corpuscular HGB Conc 34 % (32-34); Mean Corpuscular Volume 103 fl (84-94); Monocytes # (Auto) 0.7 K/mm3 (0.0-0.8); Platelet Count 256 K/mm3 (140-440); Red Blood Count 3.36 M/mm3 (3.65-5.03)
[2020-09-21 13:42] LABS: Alanine Aminotransferase 13 units/L (7-56); Albumin 4.1 g/dL (3.9-5); Blood Urea Nitrogen 11 mg/dL (9-20); Calcium 9.2 mg/dL (8.4-10.2); Hemolysis Index 21
[2020-09-21 13:43] LABS: BUN/Creatinine Ratio 16
--- NOTE | 2020-09-21 15:10 | XRay Report ---
CHEST 1 VIEW 3:07 PM INDICATION / CLINICAL INFORMATION: Hypoxia and shortness of breath. COMPARISON: 03/22/20 FINDINGS: SUPPORT DEVICES: None. HEART / MEDIASTINUM: Median sternotomy and aortic valve prosthesis. The heart size is normal. LUNGS / PLEURA: Interstitial lung markings in the perihilar regions and lower lung zones has shown mi ld increase. There is a trace right pleural effusion. No pneumothorax. ADDITIONAL FINDINGS: No significant additional findings. IMPRESSION: Probable mild congestive heart failure. Signer Name: Jourdan Mobley MD Signed: 09/21/2020 3:06 PM Workstation Name: [id number]
== END 2020-09-22 07:00 ==
LOC: ED 12:23
DX: R06.02 Shortness of breath (principal); Z53.21 Procedure and treatment not carried out due to patient leaving prior to being seen by health care provider
CPT/HCPCS: 36415; 71045; 80053; 83880; 84484; 85025; 93005

== ENCOUNTER 2022-02-14 05:55 | Day surgery (SDC) | payer MEDICAID ==
[2022-02-13 10:29] LABS: Hematocrit 41.5 % (35.5-45.6); Hemoglobin 13.9 gm/dl (11.8-15.2); Mean Corpuscular HGB Conc 34 % (32-34); Mean Corpuscular Volume 98 fl (84-94); Platelet Count 341 K/mm3 (140-440); Red Blood Count 4.22 M/mm3 (3.65-5.03); Red Cell Distribution Width 12.7 % (13.2-15.2)
[2022-02-13 10:46] LABS: Alanine Aminotransferase 22 units/L (7-56); Albumin 4.9 g/dL (3.9-5); BUN/Creatinine Ratio 14; Blood Urea Nitrogen 11 mg/dL (9-20); Calcium 10.2 mg/dL (8.4-10.2); Hemolysis Index 11
--- NOTE | 2022-02-13 17:41 | Anesthesia Consultation ---
Anesthesia Consult and Med Hx Date of service: 02/14/22 - Airway Anesthetic Teeth Evaluation: Edentulous ROM Head & Neck: Adequate Mental/Hyoid Distance: Adequate Mallampati Class: Class II Intubation Access Assessment: Good - Pre-Operative Health Status ASA Pre-Surgery Classification: ASA3 Proposed Anesthetic Plan: General - Pulmonary Hx Smoking: Yes (STOPPED X 2 YRS) Hx Asthma: No SOB: Yes (SOB) COPD: Yes (DAILY AND PRN INHALERS) Hx Pneumonia: Yes Hx Sleep Apnea: No (FAZAL PRE SCREEN HIGH RISK) - Cardiovascular System Hx Hypertension: Yes (X 15 YRS) Hx Heart Attack/AMI: Yes (X 3 - LAST ONE 5 YRS AGO) Hx Angina: No (CHF) Hx Valvular Heart Disease: Yes (AVR and MVR) - Central Nervous System Hx Seizures: Yes (ON DAILY MEDS,LAST SEIZURE 1 YR AGO) Hx Back Pain: Yes (WITH BURNING LATERAL LEFT LEG , CHRONIC PAIN) Hx Psychiatric Problems: Yes (Anxiety/Depression. Chronic pain) - Endocrine Hx End Stage Renal Disease: No - Hematic Hx Anemia: No - Other Systems Hx Alcohol Use: Yes (HX ABUSE , PT DENIES) Hx Cancer: No - Additional Comments Anesthesia Medical History Comments: +Cardiac clearance
[2022-02-14] MEDS ORDERED: MIDAZOLAM 2 MG/2 ML INJ IV NR (06:00)
[2022-02-14] MEDS ORDERED: LACTATED RINGERS 1,000 ML IV SCH (06:00)
[2022-02-14] MEDS ORDERED: CELECOXIB 200 MG CAP PO SCH (06:00)
[2022-02-14] MEDS ORDERED: ACETAMINOPHEN 500 MG TAB PO SCH (06:00)
[2022-02-14] MEDS ORDERED: MAGNESIUM OXIDE 400 MG TAB PO SCH (06:00)
[2022-02-14] MEDS ORDERED: propofoL 200 MG/20 ML VIAL IV ONE (07:19)
[2022-02-14] MEDS ORDERED: HYDROmorphone 1 MG/1 ML INJ ONE (07:19)
--- NOTE | 2022-02-14 07:52 | Anesthesia Day of Surgery ---
Anesthesia Day of Surgery - Day of Surgery Patient Examined: Yes Patient H&P Reviewed: Yes Patient is NPO: Yes
[2022-02-14] MEDS ORDERED: HYDROmorphone 0.5 MG/0.5 ML INJ IV PRN ×2 (08:00→08:30)
[2022-02-14] MEDS ORDERED: ceFAZolin/STERILE WATER 2 GM/20 ML SYRINGE IV NR (08:00)
[2022-02-14] MEDS ORDERED: ONDANSETRON 4 MG/2 ML INJ IV PRN (08:30)
[2022-02-14] MEDS ORDERED: BUPIVACAINE/PF (0.5%) 5 MG/1 ML 30 ML VIAL INFILTRATI ONE ×2 (08:57→09:58)
[2022-02-14] MEDS ORDERED: LIDOCAINE (1%) 10 MG/1 ML VIAL 20 ML MDV ONE (08:57)
[2022-02-14] MEDS ORDERED: WATER FOR IRRIG STERILE 1,500 ML BOTTLE IR ONE (09:58)
[2022-02-14] MEDS ORDERED: LIDOCAINE (1%) 10 MG/1 ML VIAL 20 ML MDV INFILTRATI ONE (09:58)
[2022-02-14] MEDS ORDERED: ROCURONIUM 50 MG/5 ML INJ IV ONE (10:30)
[2022-02-14] MEDS ORDERED: NEOSTIGMINE 10MG/10 ML INJ MDV ONE (10:30)
[2022-02-14] MEDS ORDERED: ONDANSETRON 4 MG/2 ML INJ ONE (10:30)
[2022-02-14] MEDS ORDERED: GLYCOPYRROLATE 0.4 MG/2 ML INJ ONE (10:30)
[2022-02-14] MEDS ORDERED: LIDOCAINE MPF (2%) 20 MG/1 ML VIAL 5 ML ONE (10:30)
[2022-02-14] MEDS ORDERED: LACTATED RINGERS 1,000 ML ONE (10:30)
--- NOTE | 2022-02-14 10:44 | Short Stay Summary ---
Short Stay Documentation Date of service: 02/14/22 - History Principal diagnosis: right inguinal hernia H&P: obtained from office - Allergies and Medications Current Medications: Allergies ibuprofen [From Motrin] Allergy (Verified 04/07/19 15:08) Hives onion Allergy (Verified 02/07/22 13:34) Vomiting Home Medications Medication Instructions Recorded Confirmed Last Taken Type Nifedipine ER 90 mg PO DAILY 04/10/19 02/13/22 03/22/20 History Aspirin [Aspirin BABY CHEW TAB] 81 mg PO QDAY 06/13/19 02/13/22 03/22/20 History Losartan [Cozaar] 100 mg PO QDAY 06/13/19 02/13/22 03/22/20 History clonazePAM [Klonopin] 1 mg PO TID 06/13/19 02/13/22 03/22/20 History Thiamine [Vitamin B-1] 100 mg PO QDAY #30 tablet 06/14/19 02/13/22 03/22/20 Rx Budesonide/Formoterol Fumarate 10.2 gm IH PRN PRN 02/13/22 02/13/22 Unknown History [Symbicort 160-4.5 Mcg Inhaler] Cyclobenzaprine [Flexeril] 10 mg PO QHS 02/13/22 02/13/[address] [Mildred Garcia] 75 mg PO BID 02/13/22 02/13/22 Unknown History HYDROcodone/APAP 10-325 [[place] 1 each PO Q6HR PRN 02/13/22 02/13/22 Unknown History 10/325] Labetalol HCl [Labetalol 300mg TAB] 300 mg PO TID 02/13/22 02/13/22 Unknown History PARoxetine [Paxil] 20 mg PO DAILY 02/13/22 02/13/22 Unknown History Pravastatin 40 mg PO QHS 02/13/22 02/13/22 Unknown History levETIRAcetam 750 mg PO TID 02/13/22 02/13/22 Unknown History traZODone [Desyrel] 100 mg PO QHS 02/13/22 02/13/22 Unknown History Active Medications Acetaminophen (Acetaminophen 500 Mg Tab) 1,000 mg PO ONCE APRIL Last Admin: 02/14/22 06:38 Dose: 1,000 mg Cefazolin Sodium (Cefazolin/Sterile Water 2 Gm/20 Ml Syringe) 2 gm IV PREOP NR Stop: 02/14/22 21:00 Celecoxib (Celecoxib 200 Mg Cap) 400 mg PO PREOP APRIL Last Admin: 02/14/22 06:38 Dose: 400 mg Hydromorphone HCl (Hydromorphone 0.5 Mg/0.5 Ml Inj) 0.5 mg IV Q10MIN PRN PRN Reason: Pain , Severe (7-10) Stop: 02/14/22 17:00 Hydromorphone HCl (Hydromorphone 0.5 Mg/0.5 Ml Inj) 0.25 mg IV Q10MIN PRN PRN Reason: Pain, Moderate (4-6) Stop: 02/14/22 17:00 Lactated Ringer's (Lactated Ringers) 1,000 mls @ 125 mls/hr IV DIRECT APRIL Last Admin: 02/14/22 06:38 Dose: 125 mls/hr Magnesium Oxide (Magnesium Oxide 400 Mg Tab) 400 mg PO ONCE APRIL Last Admin: 02/14/22 06:38 Dose: 400 mg Methocarbamol (Methocarbamol 750 Mg Tab) 1,500 mg PO ONCE APRIL Last Admin: 02/14/22 06:38 Dose: 1,500 mg Midazolam HCl (Midazolam 2 Mg/2 Ml Inj) 2 mg IV PREOP NR Stop: 02/14/22 23:59 Last Admin: 02/14/22 07:15 Dose: 2 mg Ondansetron HCl (Ondansetron 4 Mg/2 Ml Inj) 4 mg IV ONCE PRN PRN Reason: Nausea And Vomiting Stop: 02/14/22 17:00 - Brief post op/procedure progress note Date of procedure: 02/14/22 Pre-op diagnosis: right inguinal hernia Post-op diagnosis: same Procedure: robotic assisted right inguinal hernia repair with mesh Anesthesia: GETA, local, other (right ilioinguinal nerve block) Findings: moderate sized indirect right inguinal hernia containing preperitoneal fat Surgeon: MARK MCMAHON [employer]inder[employer] Assistant: FRANCISCO DO Estimated blood loss: minimal Pathology: none Condition: stable - Hospital course Hospital course: Pt observed in PACU and discharged to home in stable condition - Disposition Condition at discharge: Good Disposition: 01 HOME / SELF CARE / HOMELESS Short Stay Discharge Plan Activity: other (no heavy lifting) Diet: regular Wound: open to air Additional Instructions: May resume plavix on Thursday02/16/22 Please see additional printed discharge instructions Follow up with: SONIA SELF MD [Primary Care Provider] - 7 Days MARK MCMAHON DO [Staff Physician] - 14 Days Prescriptions: Gabapentin 300 mg PO BID #6 cap HYDROcodone/APAP 10-325 [[place] 10-325 mg TAB] 1 each PO Q6HR PRN #20 tab PRN Reason: Pain , Severe (7-10)
--- NOTE | 2022-02-14 11:12 | Operative Report ---
Operative Report Operative Report: Date of procedure: 02/14/22 Pre-op diagnosis: right inguinal hernia Post-op diagnosis: same Procedure: robotic assisted right inguinal hernia repair with mesh Anesthesia: GETA, local, other (right ilioinguinal nerve block) Findings: moderate sized indirect right inguinal hernia containing preperitoneal fat Surgeon: MARK MCMAHON Certified Medication Technician: FRANCISCO DO Estimated blood loss: minimal Pathology: none Condition: stable Hospital course: Pt observed in PACU and discharged to home in stable condition Condition at discharge: Good Disposition: 01 HOME / SELF CARE / HOMELESS HPI and indication: Patient is a 61-year-old male who was referred to the surgery clinic for a bulge in the right groin. He was found to have a right inguinal hernia on physical exam which was soft and reducible. It was recommended that the hernia be repaired. I discussed all risk, benefits, alternatives to repair with the patient and questions were answered. I explained that if the hernia was found on the left side at the same time, this would be fixed as well. The patient was agreeable. Consent obtained for robotic assisted right inguinal hernia repair with mesh, possible b/l, possible open. Procedure in detail: Patient was identified in the preoperative area, take back to operating room placed on operative table in supine position. After anesthesia was induced both arms were tucked and all bony prominences padded appropriately. A Hill catheter was sterilely placed by the circulating nurse. The abdomen and b/l groins were then prepped and draped in usual sterile fashion and a timeout performed. Local anesthetic was infiltrated to skin at the intended incision sites. A supraumbilical incision was made through which a Veress needle was inserted. Veress needle positioning was confirmed using saline drop test and the abdomen insufflated to 15 mmHg. Once the abdomen was insufflated, the Veress needle was removed and a 5 mm Optiview trocar was placed as incision. The abdomen is inspected there was no underlying injury to any of the abdominal structures. Patient was placed in Trendelenburg and the pelvis examined. There was an indirect right inguinal hernia and no obvious hernia on the left. At this point, a 8 mm right upper quadrant and left upper quadrant robotic trocars were then placed under direct visualization. The 5 mm supraumbilical trocar was removed and replaced with a 12 mm balloon trocar under direct visualization. A Ray-Ирина was placed into the abdomen. The robot was then docked. A fenestrated bipolar was placed into arm #2 and a monopolar scissor in arm #1. The surgeon was then transferred to the console. First, I created a right sided preperitoneal flap. The peritoneum was scored approximately 5 to 6 cm from the hernia defect. The peritoneum was then incised from the midline to the ASIS. The preperitoneal flap was then developed in an avascular plane. I first defined the medial margin by dissecting to the pubic tubercle. The pubic tubercle was cleared of overlying fatty tissue using blunt dissection. I then created the lateral margin in a similar fashion. Great care was taken to avoid injury to any nerves. There was an indirect inguinal hernia and the hernia sac was gently reduced using blunt dissection and transecting cremasteric fibers with electrocautery. During the dissection, the cord structures were identified and protected. The cord structures and vas deferens were visualized throughout the entire dissection. Preperitoneal fat within the hernia was also reduced. Once the hernia sac was completely reduced, the peritoneal flap was checked for hemostasis. Any additional cremasteric fibers that were were tenting up the peritoneum were divided. Hemostasis was carefully ensured. The hernia was repaired using a RIGHT large 3D max mesh. The mesh along with suture material was placed into the abdomen by the processing assistant. The mesh was positioned into the preperitoneal flap in the usual fashion. The medial portion of the mesh was sutured to Braulio's ligament using an interrupted 2-0 Vicryl stitch. The lateral aspect of the mesh was sutured to the anterior lateral abdominal wall using a 2-0 Vicryl interrupted stitch. The mesh was seen to lay flat in the pocket with excellent coverage. An 18 F angiocath was inserted through the lateral abdominal wall into the preperitoneal space under direct visualization. The peritoneum was then reapproximated using 3-0 running V-Loc stitch. The entirety of the mesh was covered with peritoneum. The robot was then undocked and the surgeon scrubbed back in. The remainder of the case was performed laparoscopically. All sharp materials along with a Ray-Ирина were removed from the abdomen under direct visualization. The 12 mm port was removed and the fascia closed using a interrupted 0 Vicryl stitch. The abdomen was then slowly desufflated and the mesh was seen to lay flat in the preperitoneal space. The remaining trocars were removed. Preperitoneal air was evacuated via the angiocath and this was removed. Skin incisions were once again infiltrated with local anesthetic. RIGHT ilioinguinal nerve block was also performed with 5 cc of local anesthetic. The skin incisions were approximated with 4-0 Monocryl subcuticular stitches and skin glue. At the end of the case all sponge, instrument, sharp counts were correct x2. Patient was awoken from anesthesia and Hill catheter removed. Both testicles were palpated in the scrotum in anatomic position. The patient was taken to PACU in stable condition.
[2022-02-14 12:02] VITALS: BP 152/79
[2022-02-14] MEDS ORDERED: HYDROcodone/ACETAMINOPHEN 5-325 MG TAB PO ONE (12:20)
--- NOTE | 2022-02-14 14:18 | Post Anesthesia Evaluation ---
- Post Anesthesia Evaluation Patient Participated: Yes Airway Patent: Yes Stable Respiratory Function: Yes Nausea/Vomiting: No Temp > 96.8F: Yes Pain Manageable: Yes Adequeate Hydration: Yes Anesthesia Complications: No Block Receding Appropriately: Not Applicable Patient on Ventilator: No
== END 2022-02-14 12:14 | disposition home or self-care (01) ==
LOC: OR 05:55
PROVIDERS: ATTEND Surgery
DX: K40.90 Unilateral inguinal hernia, without obstruction or gangrene, not specified as recurrent (principal); I11.0 Hypertensive heart disease with heart failure; I50.9 Heart failure, unspecified; I20.8 Other forms of angina pectoris; E78.00 Pure hypercholesterolemia, unspecified; J44.9 Chronic obstructive pulmonary disease, unspecified; F32.9 Major depressive disorder, single episode, unspecified; F41.9 Anxiety disorder, unspecified; M19.90 Unspecified osteoarthritis, unspecified site; Z20.822 Contact with and (suspected) exposure to COVID-19; Z88.8 Allergy status to other drugs, medicaments and biological substances; Z79.899 Other long term (current) drug therapy; Z79.82 Long term (current) use of aspirin; Z87.891 Personal history of nicotine dependence; Z98.890 Other specified postprocedural states; Z95.1 Presence of aortocoronary bypass graft; Z95.2 Presence of prosthetic heart valve; Z87.01 Personal history of pneumonia (recurrent); Z72.89 Other problems related to lifestyle
CPT/HCPCS: 36415; 49650; 80053; 85027; C1781; J0690; J1170; J1815; J2250; J2405; J2704; J2710; J3490; J7120; S2900; U0003